=== PATIENT | male | born 1990 | race Caucasian/White ===

== ENCOUNTER 2020-05-19 17:22 | Emergency (ER) | payer MEDICAID, SELFPAY ==
--- NOTE | ~2020-05-19 | XR_ITS ---
EXAMINATION: XR CHEST CLINICAL INFORMATION: Chest pain, right-sided pressure. COMPARISON: None TECHNIQUE: Frontal view of the chest was obtained. FINDINGS: The lungs are clear. The heart and mediastinal structures are unremarkable. XR/XR chest 1V IMPRESSION: No acute cardiopulmonary process.
[2020-05-19 17:36] VITALS: BP 144/88; PULSE 78; RESP 18; TEMP 36.7; O2SAT 98; BMI 22.8
--- NOTE | 2020-05-19 17:43 | ECG_ITS ---
Test Reason : EDUARDO M Blood Pressure : / mmHG Vent. Rate : 084 BPM Atrial Rate : 084 BPM P-R Int : 162 ms QRS Dur : 098 ms QT Int : 390 ms P-R-T Axes : 050 066 043 degrees QTc Int : 460 ms Normal sinus rhythm with sinus arrhythmia Normal ECG No previous ECGs available Referred By: Generic ED Physician Electronically Signed By:ERMA VALDIVIA MD
--- NOTE | 2020-05-19 18:31 | ED.CHESTPAIN ---
HPI - Chest Pain General Chief Complaint: Chest Pain Stated Complaint: chest pressure Time Seen by Provider: 05/19/20 18:19 Source: patient Mode of arrival: EMS Limitations: no limitations History of Present Illness HPI narrative: Patient comes emergency room complaining of chest pressure for a month. Patient states it increases with wrist and resolves when he is active or walking or with deep breath. Patient states he has been seen at [facility] several times, states 1 month ago he was scanned for possible PE, he was told that it was negative. Patient states that he is here because he is anxious that he has the same symptoms as his friend that had a PE. Patient states that the last time he used cocaine was 1 month ago and heroin 3 days ago, patient is on methadone. MD complaint: chest pain Related Data Allergies Allergy/AdvReac Type Severity Reaction Status Date / Time No Known Allergies Allergy Verified 05/19/20 17:36 Review of Systems Review of Systems: Constitutional : No Weight loss, No Fever, No Chills, No Night Sweats, No Fatigue, No Malaise ENT/Mouth : No Hearing loss, No Ear Pain, No Nasal Congestion, No Sinus Pain, No Hoarseness, No sore throat, No Rhinorrhea, No Swallowing Difficulty Eyes: No Eye Pain, No Swelling, No Redness, No Foreign Body, No Discharge, No Vision Changes Cardiovascular : Complaining of right-sided chest pain, worse with rest and deep breath, improves with exertion No SOB, No Dyspnea on Exertion, No Orthopnea, No Edema, No Palpitations Respiratory : No Cough, No Sputum, No Wheezing, No Smoke Exposure, No Dyspnea Gastrointestinal : No Nausea, No Vomiting, No Diarrhea, No Constipation, No abdominal Pain, No Hematochezia, No Melena Genitourinary : no irregular bleeding, No Dysuria, No Urinary Frequency, No Hematuria, No Urinary Incontinence, No Urgency, No Flank Pain, No Urinary Flow Changes, No Hesitancy Musculoskeletal : No joint pain, No Myalgias, No Joint Swelling Skin : No Skin Lesions, No rash Neuro : No Weakness, No Numbness, No Paresthesias, No Loss of Consciousness, No Dizziness, No Headache Psych : No Anxiety/Panic, No Depression, No SI/HI/AH/VH, No Social Issues, Heme/Lymph: No Bruising, No Bleeding,No Lymphadenopathy Endocrine : No Polyuria, No Polydipsia, No Temperature Intolerance PMFSH Past Medical History Medical History (Updated 05/19/20 @ 19:14 by Shanta Okeefe MD) Substance abuse Social History Social History Advance Directives: No Advance Directives Information Provided: No Physical Exam Vital Signs: Vital Signs: Last Vital Signs Temp 98.1 F 05/19/20 17:36 Pulse 78 05/19/20 17:36 Resp 18 05/19/20 17:36 BP 144/88 H 05/19/20 17:36 Pulse Ox 98 05/19/20 17:36 Body Mass Index 22.8 Appearance: Alert. Oriented X3. No acute distress. Eyes: Pupils equal, round and reactive to light. ENT: Pharynx normal. Neck: Normal inspection. Neck supple. No lymph nodes noted. No crepitus CVS: Normal heart rate and rhythm. Pulses normal. Normal S1 and S2 Respiratory: No respiratory distress. Breath sounds normal. No Wheezing. No rales Abdomen: Soft and nontender. No rigidity. No distention. good BS x4 Skin: Skin warm and dry. Normal skin color. Normal skin turgor. Extremities: No lower extremity edema. No lower extremity edema. No Lacerations. No Rash Neuro: Oriented X 3. No motor deficit. No sensory deficit. Moving all extermities. No slurred speech. Course Course Course Narrative: At this time, patient is asymptomatic, I discussed the labs and imaging. Patient's heart score 0, Wells criteria for PE score 0 Patient's symptoms likely secondary to pleurisy versus musculoskeletal pain. MDM - Chest Pain Lab Data Result diagrams: 05/19/20 18:47 05/19/20 18:47 Labs: Lab Results 05/19/20 05/19/20 05/19/20 Range/Units 18:47 18:47 18:47 WBC 9.3 (4.8-10.8) X10*3/uL RBC 5.08 (4.60-5.80) X10*6/uL Hgb 15.5 (14.0-18.0) g/dl Hct 44.1 (42-52) % MCV 86.8 (80-98) fL MCH 30.5 (27.0-33.0) pg MCHC 35.1 (31.0-36.0) g/dl RDW 13.4 (11.0-16.0) % Plt Count 216 (160-400) X10*3/uL MPV 8.3 L (9.4-12.4) fL Immature Gran % (Auto) 0.2 (0.0-0.4) % Neut % (Auto) 66.0 (45-73) % Lymph % (Auto) 22.0 (20-40) % Mcclain % (Auto) 7.8 (2-11) % Eos % (Auto) 3.6 (0-4) % Baso % (Auto) 0.4 (0-2) % Lymph # (Auto) 2.0 (1.2-4.9) X10*3/uL Mcclain # (Auto) 0.7 (0.1-1.2) X10*3/uL Eos # (Auto) 0.3 (0.0-0.4) X10*3/uL Baso # (Auto) 0.0 (0.0-0.2) X10*3/uL Abs Immat Gran (auto) 0.02 (0.00-0.03) X10*3/uL Absolute Neuts (auto) 6.1 (2.0-8.3) X10*3/uL Absolute Nucleated RBC 0.000 (0.0-0.012) X10*3/uL Nucleated RBC % (auto) 0.0 (0.0-0.2) /100WBC D-Dimer NG/ML Sodium 138 (135-145) mmol/L Potassium 4.3 (3.3-5.1) mmol/L Chloride 100 (96-108) mmol/L Carbon Dioxide 29 (22-29) mmol/L Anion Gap 13 (12-20) BUN 13 (9-16) mg/dL Creatinine 0.85 (0.5-1.4) mg/dL Estim Creat Clear Calc 120.0 Estimated GFR > 60 Random Glucose 87 (60-115) mg/dL Calcium 9.4 (8.4-10.2) mg/dL Troponin I High Sens < 3.5 (<3.5-35.0) ng/L 05/19/20 Range/Units 18:47 WBC (4.8-10.8) X10*3/uL RBC (4.60-5.80) X10*6/uL Hgb (14.0-18.0) g/dl Hct (42-52) % MCV (80-98) fL MCH (27.0-33.0) pg MCHC (31.0-36.0) g/dl RDW (11.0-16.0) % Plt Count (160-400) X10*3/uL MPV (9.4-12.4) fL Immature Gran % (Auto) (0.0-0.4) % Neut % (Auto) (45-73) % Lymph % (Auto) (20-40) % Mcclain % (Auto) (2-11) % Eos % (Auto) (0-4) % Baso % (Auto) (0-2) % Lymph # (Auto) (1.2-4.9) X10*3/uL Mcclain # (Auto) (0.1-1.2) X10*3/uL Eos # (Auto) (0.0-0.4) X10*3/uL Baso # (Auto) (0.0-0.2) X10*3/uL Abs Immat Gran (auto) (0.00-0.03) X10*3/uL Absolute Neuts (auto) (2.0-8.3) X10*3/uL Absolute Nucleated RBC (0.0-0.012) X10*3/uL Nucleated RBC % (auto) (0.0-0.2) /100WBC D-Dimer < 200 NG/ML Sodium (135-145) mmol/L Potassium (3.3-5.1) mmol/L Chloride (96-108) mmol/L Carbon Dioxide (22-29) mmol/L Anion Gap (12-20) BUN (9-16) mg/dL Creatinine (0.5-1.4) mg/dL Estim Creat Clear Calc Estimated GFR Random Glucose (60-115) mg/dL Calcium (8.4-10.2) mg/dL Troponin I High Sens (<3.5-35.0) ng/L Imaging Data Chest x-ray: Radiologist's impression: Appearance: Alert. Oriented X3. No acute distress. Eyes: Pupils equal, round and reactive to light. ENT: Pharynx normal. Neck: Normal inspection. Neck supple. No lymph nodes noted. No crepitus CVS: Normal heart rate and rhythm. Pulses normal. Normal S1 and S2 Respiratory: No respiratory distress. Breath sounds normal. No Wheezing. No rales Abdomen: Soft and nontender. No rigidity. No distention. good BS x4 Skin: Skin warm and dry. Normal skin color. Normal skin turgor. Extremities: No lower extremity edema. No lower extremity edema. No Lacerations. No Rash Neuro: Oriented X 3. No motor deficit. No sensory deficit. Moving all extermities. No slurred speech. ECG Data ECG #1: Attestation: I personally reviewed and interpreted this ECG as follows: (Sinus rhythm, heart rate 84, QTC 460, no ST segment depression or elevation, no T-wave inversion) Scores Heart Score History: -0- slightly suspicious Age: -0- < or = 45 Risk factory: -0- no risk factors known Troponin: -0- < or = normal limit Discharge Plan Discharge Clinical Impression: Pleurisy Patient Disposition: Home, Self-Care Instructions: Pleurisy (ED) Additional Instructions: Please follow-up with your primary care physician tomorrow. If you have any worsening or new symptoms, please return to the emergency room or call 911
[2020-05-19 18:53] LABS: MANUAL DIFF FLAG NO
[2020-05-19 18:55] LABS: Basophils Percent Auto 0.4 % (0-2); Eosinophils Absolute Auto 0.3 X10*3/uL (0.0-0.4); Eosinophils Percent Auto 3.6 % (0-4); Hematocrit 44.1 % (42-52); Hemoglobin 15.5 g/dl (14.0-18.0); Imm Gran Abs Auto 0.02 X10*3/uL (0.00-0.03); Imm Gran Pct Auto 0.2 % (0.0-0.4); Mean Corpuscular HGB Conc 35.1 g/dl (31.0-36.0); Mean Corpuscular Hemoglobin 30.5 pg (27.0-33.0); Mean Corpuscular Volume 86.8 fL (80-98); Mean Platelet Volume 8.3 fL (9.4-12.4); Monocytes Absolute Auto 0.7 X10*3/uL (0.1-1.2); Monocytes Percent Auto 7.8 % (2-11); Neutrophils Absolute Auto 6.1 X10*3/uL (2.0-8.3); Platelet Count 216 X10*3/uL (160-400); Red Blood Count 5.08 X10*6/uL (4.60-5.80); Red Cell Distribution Width 13.4 % (11.0-16.0); White Blood Count 9.3 X10*3/uL (4.8-10.8)
[2020-05-19 19:04] LABS: D Dimer < 200 NG/ML
[2020-05-19 19:23] LABS: Anion Gap 13 (12-20); Blood Urea Nitrogen 13 mg/dL (9-16); Calcium 9.4 mg/dL (8.4-10.2); Carbon Dioxide 29 mmol/L (22-29); Chloride 100 mmol/L (96-108); Estimated Glomerular Filt Rate > 60; Glucose Random 87 mg/dL (60-115); Potassium 4.3 mmol/L (3.3-5.1); Sodium 138 mmol/L (135-145)
[2020-05-19 19:30] LABS: Troponin-I High Sensitivity < 3.5 ng/L (<3.5-35.0)
[2020-05-19 19:54] VITALS: BP 132/88; PULSE 86; RESP 32; O2SAT 96
== END 2020-05-19 20:11 | disposition home or self-care (01) ==
PROVIDERS: Emergency Provider Emergency Medicine
DX: R09.1 Pleurisy (principal); F11.20 Opioid dependence, uncomplicated; F17.200 Nicotine dependence, unspecified, uncomplicated
CPT/HCPCS: 36415; 71045; 80048; 84484; 85025; 85379; 93005; 99283; 99284

== ENCOUNTER 2022-10-15 13:44 | Emergency (ER) | payer OTHER, SELFPAY ==
[2022-10-15 14:47] VITALS: BP 139/91; PULSE 89; RESP 16; TEMP 37.3; O2SAT 99; BMI 21.3
--- NOTE | 2022-10-15 14:48 | ED.GENADULT ---
HPI - General Adult General Chief complaint: Extremity Problem Stated complaint: R Leg Pain No Injury Time Seen by Provider: 10/15/22 18:09 Source: patient Mode of arrival: ambulatory Limitations: no limitations History of Present Illness HPI narrative: Patient is a 32 year old assigned male at with a history of substance abuse presenting to the emergency department today with right upper leg pain. Patient states that sometimes his right quad will spasm and cause pain. Patient denies any dizziness, lightheadedness, abdominal pain, nausea, vomiting, fever, chills, blurry vision, double vision, loss of vision, chest pain, difficulty breathing, shortness of breath, back pain, night sweats, pain with urination, increased urinary frequency, increased urinary urgency, blood in his urine or stool, syncope or a near syncopal episode, bowel incontinence, bladder incontinence, bowel retention, bladder retention, or any other complaints at this time. Onset (ago): day(s) Location: right and lower extremity Radiation: non-radiation Severity: mild Severity scale (1-10): 4 Quality: aching Pain Consistency: intermittent Relieving factors: none Exacerbating factors: none Associated symptoms: denies other symptoms Treatments prior to arrival: none Related Data Previous Rx's Medication Instructions Recorded cyclobenzaprine 5 mg tablet 5 mg PO TID PRN muscle spasm 7 10/15/22 days #21 tabs Allergies Allergy/AdvReac Type Severity Reaction Status Date / Time No Known Allergies Allergy Verified 05/19/20 17:36 Review of Systems Constitutional: Constitutional: Reports no additional constitutional complaints, Denies chills, Denies fever(s) and Denies night sweats Eyes: Eyes: Reports no additional eye complaints, Denies blurry vision, Denies change in vision, Denies diplopia, Denies eye discharge, Denies loss of vision and Denies eye pain ENT: Denies dizziness Cardiovascular: Cardiovascular: Reports no additional cardiovascular complaints, Denies chest pain, Denies lightheadedness, Denies Loss of Consciousness and Denies dyspnea Respiratory: Respiratory: Reports no additional respiratory complaints and Denies dyspnea Gastrointestinal: Gastrointestinal: Reports no additional gastrointestinal complaints, Denies abdominal pain, Denies melena, Denies hematochezia, Denies change in bowel habits and Denies change in stool character Genitourinary: Genitourinary: Reports no additional male genitourinary complaints, Denies hematuria, Denies oliguria, Denies difficulty urinating, Denies dysuria, Denies urinary frequency, Denies urinary hesitancy, Denies urinary incontinence and Denies urinary urgency Musculoskeletal: Musculoskeletal: Reports no additional musculoskeletal complaints, Denies numbness and Denies tingling Comments: right upper leg pain Neurologic: Denies dizziness, Denies loss of vision, Denies numbness and Denies tingling Psychiatric: Psychiatric: Reports no additional psychiatric complaints Endocrine: Endocrine: Reports no additional endocrine complaints Hematologic/Lymphatic: Hematologic/Lymphatic: Reports no additional hematologic/lymphatic complaints Allergic/Immunologic: Allergic/Immunologic: Reports no additional allergic/immunologic complaints [facility] Past Medical History Attestation statement: The following information was validated with the patient. Source: old records reviewed and nursing notes reviewed Medical History Substance abuse Social History Social History Substance Use Type: Crack/Cocaine and Heroin Advance Directives: No Advance Directives Information Provided: No Physical Exam ED Vital Signs: Vital Signs - 24 hr 10/15/22 14:47 10/15/22 18:01 Temperature 99.1 F 98.2 F Pulse Rate 89 81 Respiratory Rate 16 16 Blood Pressure 139/91 H 133/83 Pulse Oximetry 99 95 Oxygen Delivery Method Room Air Room Air BMI result Body Mass Index 21.3 Const General: cooperative, no acute distress, alert and awake Nutritional Appearance: well nourished Orientation/consciousness: patient oriented x3 Limitations: no limitations [facility] Head: Yes normal to inspection and Yes atraumatic Ears: hearing grossly normal bilaterally and external ears normal General nose exam: Normal external nose present, no nasal discharge noted and no epistaxis Face and sinus: Yes normal facial exam, No abrasion and No laceration Mouth: Normal oral and palatal mucosa present, no drooling and no muffled voice Eyes General: appearance normal, both eyes and all related structures Periorbital: periorbital findings normal Eyelids: Yes eyelids normal Conjunctivae: conjunctivae normal Pupils: Equal, round and reactive pupils present EOM: EOMs intact bilaterally Neck Neck: Yes normal visual inspection, Yes full ROM and Yes no lymphadenopathy Chest Chest palpation & inspection: normal inspection of the chest Resp Effort & Inspection: normal respiratory effort and able to speak in complete sentences GI Inspection: Yes normal to inspection Neuro General: patient oriented x3 and moves all extremities Cranial nerves: Yes Equal, round and reactive pupils present Cognition (Neuro): normal cognition Motor exam (neuro): 5/5 motor strength present throughout Sensory Exam: Normal double simultaneous stimulation for sensation Coordination: [id number] test normal Extrem General: Yes normal to inspection, Yes full ROM and Yes capillary refill normal Psych Appearance: grossly normal Mental Status: mental status grossly normal Affect: normal affect Attitude: cooperative Thought process: Normal thought process present Thought content: Normal thought content present Insight: Good insight present (Psych) Course Course Course Narrative: This is an RME: Additional HPI, ROS, PE not included below will be deferred to primary provider. Patient is a 32 year old healthy male presenting with a few months of pain in his thigh. He explains he thinks its a hernia. He denies recent trauma. Plan: labs Procedures Orthopedic Splinting/Casting Injury #1: Side: right Lower Extremity Injury Location: upper leg Lower Extremity Immobilizer: Pola wrap Medical Decision Making Medical Decision Making MDM Narrative: Patient is a 32 year old assigned male at with a history of substance abuse presenting to the emergency department today with right upper leg pain. Patient's physical exam was unremarkable. Patient's right lower extremity had no warmth, no swelling, and no abnormalities to palpation or inspection. Patient's clinical presentation is the most consistent with a quad strain / sprain / spasm. I explained my physical exam findings to the patient. I answered all questions asked by the patient. POLA wrap was placed around the patient's right quad, without incident. Patient's PMS was in tact prior to and after POLA placement. I stressed the importance of the patient taking his medication as prescribed. I stressed the importance of the patient following up with his primary care provider and an orthopedic provider. I stressed the importance of the patient returning to the emergency department immediately if his symptoms were to worsen or if he were to develop any dizziness, shortness of breath, difficulty breathing, chest pain, blurry vision, loss of vision, nausea, vomiting, abdominal pain, fever, chills, back pain, or any other complaints. Patient verbalized agreement and understanding with this treatment plan and discharge. Differential Diagnosis Differential Diagnoses: The differential diagnosis associated with the presentation includes R quad strain R quad sprain R quad spasm Discharge Plan Discharge Clinical Impression: Quadriceps strain Patient Disposition: Home, Self-Care Instructions: Muscle Strain (DC) Additional Instructions: Follow up with your primary care provider and an orthopedic provider. Return to the emergency department immediately if your symptoms worsen or if you develop any dizziness, shortness of breath, difficulty breathing, chest pain, blurry vision, loss of vision, nausea, vomiting, abdominal pain, fever, chills, back pain, or any other complaints. Prescriptions: New cyclobenzaprine 5 mg tablet 5 mg PO TID PRN (Reason: muscle spasm) 7 Days Qty: 21 0RF Referrals: [facility] Family Medicine [Provider Group] (Call to establish and follow up with a primary care provider. If you already have a primary care provider, please follow up with them.) [facility] Primary Care, [place] [Provider Group] (Call to establish and follow up with a primary care provider. If you already have a primary care provider, please follow up with them.) [facility] Primary Care,[facility] [Provider Group] (Call to establish and follow up with a primary care provider. If you already have a primary care provider, please follow up with them.) [facility] [place] [facility] [Provider Group] (Call to establish and follow up with an orthopedic provider. ) Interventions: ED Discharge Assessment Last Done: 10/15/22 19:03 Discharge Date/Time: 10/15/22 19:04 Print Language: Kyrgyz
[2022-10-15 18:01] VITALS: BP 133/83; PULSE 81; RESP 16; TEMP 36.8; O2SAT 95
== END 2022-10-15 19:04 | disposition home or self-care (01) ==
PROVIDERS: Emergency Provider Emergency Medicine
DX: S76.111A Strain of right quadriceps muscle, fascia and tendon, initial encounter (principal); X58.XXXA Exposure to other specified factors, initial encounter; M79.604 Pain in right leg; Y93.9 Activity, unspecified; Y92.9 Unspecified place or not applicable; Y99.9 Unspecified external cause status
CPT/HCPCS: 99283

== ENCOUNTER 2022-10-17 14:00 | Emergency (ER) | payer OTHER, SELFPAY ==
--- NOTE | 2022-10-17 | ECG_ITS ---
Test Reason : DYSPNEA Blood Pressure : / mmHG Vent. Rate : 053 BPM Atrial Rate : 053 BPM P-R Int : 168 ms QRS Dur : 102 ms QT Int : 420 ms P-R-T Axes : 016 068 048 degrees QTc Int : 394 ms Sinus bradycardia with sinus arrhythmia Otherwise normal ECG When compared with ECG of 19-MAY-2020 17:49, Vent. rate has decreased BY 31 BPM QT has shortened Referred By: Generic ED Physician Electronically Signed By:ERMA VALDIVIA MD
--- NOTE | ~2022-10-17 | XR_ITS ---
EXAMINATION: XR CHEST CLINICAL INFORMATION: Chest pain COMPARISON: None available. TECHNIQUE: 2 views of the chest were obtained. FINDINGS: No significant abnormality is noted involving the heart, lungs, mediastinum, bony thorax or soft tissues. XR/XR chest 2V IMPRESSION: Unremarkable chest examination.
[2022-10-17 14:05] VITALS: BP 154/105; PULSE 116; RESP 22; TEMP 36.9; O2SAT 95; BMI 21.1
[2022-10-17 14:55] VITALS: BP 128/88; PULSE 77; RESP 18; O2SAT 96
--- NOTE | 2022-10-17 14:58 | PC.NURSE ---
pt axox4, respirations even and unlabored, sats 96% RA, nsr on monitor 86 bpm, skin wpd. pt c/o R. leg pain, chest tightness, sob x 1 day. pt denies injury to leg. pt reports throbbing sensation on R. side of chest. denies n/v/d/abd pain/dizziness. pt reports heroin use; last 2 days ago (nasal inhalation); most common injection site BUE per pt. no redness/swelling noted on R. leg. neuros intact. all needs met at this time; awaiting primary eval by ed provider; call patel within reach.
[2022-10-17 15:37] LABS: MANUAL DIFF FLAG NO
[2022-10-17 15:42] LABS: Basophils Percent Auto 0.3 % (0-2); Hematocrit 41.4 % (42.0-52.0); Hemoglobin 14.3 g/dl (14.0-18.0); Imm Gran Abs Auto 0.04 X10*3/uL (0.00-0.03); Imm Gran Pct Auto 0.3 % (0.0-0.4); Lymphocytes Absolute Auto 1.4 X10*3/uL (1.2-4.9); Lymphocytes Percent Auto 11.3 % (20-40); Mean Corpuscular HGB Conc 34.5 g/dl (31.0-36.0); Mean Corpuscular Hemoglobin 29.5 pg (27.0-33.0); Mean Corpuscular Volume 85.5 fL (80.0-98.0); Mean Platelet Volume 8.1 fL (9.4-12.4); Monocytes Absolute Auto 0.9 X10*3/uL (0.1-1.2); Monocytes Percent Auto 7.1 % (2-11); Neutrophils Absolute Auto 9.7 x10*3/uL (2.0-8.3); Platelet Count 230 X10*3/uL (160-400); Red Blood Count 4.84 X10*6/uL (4.60-5.80); Red Cell Distribution Width 11.9 % (11.0-16.0)
[2022-10-17 15:51] VITALS: PULSE 58
[2022-10-17 15:51] LABS: Prothrombin Time 12.2 SEC (11.1-13.3)
[2022-10-17 15:54] LABS: Partial Thromboplastin Time 31.5 SEC (26.0-36.4)
[2022-10-17 15:56] LABS: Alanine Aminotransferase 10 U/L (0-40); Albumin Level 4.2 g/dL (3.5-5.0); Alkaline Phosphatase 96 U/L (39-117); Anion Gap 11 (12-20); Aspartate Amino Transferase 8 U/L (5-37); Bilirubin Total 0.4 mg/dL (0.0-1.0); Blood Urea Nitrogen 13 mg/dL (9-16); Calcium 9.4 mg/dL (8.4-10.2); Carbon Dioxide 28 mmol/L (22-29); Chloride 108 mmol/L (96-108); Creatinine Clr Calc Pharmacy 114.5; Estimated Glomerular Filt Rate > 60; Glucose Random 88 mg/dL (60-115); Potassium 4.3 mmol/L (3.3-5.1); Sodium 143 mmol/L (135-145)
[2022-10-17 16:00] VITALS: BP 136/82; PULSE 60; RESP 19; TEMP 36.8; O2SAT 99
[2022-10-17 16:01] LABS: B Type Natriuretic Peptide < 10 pg/mL (<100)
[2022-10-17 16:04] LABS: D Dimer High Sensitivity < 150 NG/ML
[2022-10-17 16:08] LABS: Troponin-I High Sensitivity < 2.7 ng/L (<3.5-35.0)
--- NOTE | 2022-10-17 16:17 | ED.SOB ---
HPI - SOB/Dyspnea General Chief Complaint: Dyspnea Stated Complaint: Diff breathing Time Seen by Provider: 10/17/22 16:14 Source: patient Mode of arrival: ambulatory Limitations: no limitations History of Present Illness HPI Narrative: Patient with history of substance abuse multiple complaints nonspecific was seen here 2 days ago for right thigh pain advised Flexeril for muscle spasm, complaining of feeling air bubble in the right thigh and air bubble feeling in the right groin area also complaining of nonspecific chest pain body aches , anxious on arrival Related Data Previous Rx's Medication Instructions Recorded cyclobenzaprine 5 mg tablet 5 mg PO TID PRN muscle spasm 7 10/15/22 days #21 tabs ibuprofen 600 mg tablet 600 mg PO Q6H PRN fever or pain 10/17/22 #30 tabs Allergies Allergy/AdvReac Type Severity Reaction Status Date / Time No Known Allergies Allergy Verified 10/17/22 14:05 Review of Systems Review of Systems: Yes all other systems are reviewed and are negative PMFSH Past Medical History Medical History Substance abuse Social History Social History Alcohol intake: never Smoked in Last 30 Days: Yes Use of substances other than those prescribed or required for medical reasons: Yes Substance Use Type: Heroin Last Used Substance: Days (ago) Advance Directives: No Advance Directives Information Provided: No Physical Exam Vital Signs: Vital Signs: Last Vital Signs Temp 98.2 F 10/17/22 16:00 Pulse 60 10/17/22 16:00 Resp 19 10/17/22 16:00 BP 136/82 10/17/22 16:00 Pulse Ox 99 10/17/22 16:00 O2 Del Method Room Air 10/17/22 16:00 BMI result Body Mass Index 21.1 Appearance: Alert. Oriented X3. No acute distress. Anxious ENT: Pharynx normal. Oral Mucosa moist Neck: Normal inspection. Neck supple. CVS: Normal heart rate and rhythm. Pulses normal. Respiratory: No respiratory distress. Equal air entry bilateral, no wheezing/rales/rhonchi Abdomen: Soft and nontender. Bowel sounds are present, no mass palpable, no CVA tenderness Skin: Skin warm and dry. Normal skin color. Normal skin turgor. Extremities: No lower extremity edema. No calf tenderness no signs of muscle rupture or strain Neuro: Oriented X 3. No motor deficit. No sensory deficit.No cerebellar signs , cranial nerves II-XII intact Medical Decision Making Lab Data 10/17/22 15:31 10/17/22 15:31 Labs: Lab Results 10/17/22 10/17/22 10/17/22 Range/Units 15:31 15:31 15:31 WBC 12.0 H (4.8-10.8) X10*3/uL RBC 4.84 (4.60-5.80) X10*6/uL Hgb 14.3 (14.0-18.0) g/dl Hct 41.4 L (42.0-52.0) % MCV 85.5 (80.0-98.0) fL MCH 29.5 (27.0-33.0) pg MCHC 34.5 (31.0-36.0) g/dl RDW 11.9 (11.0-16.0) % Plt Count 230 (160-400) X10*3/uL MPV 8.1 L (9.4-12.4) fL Immature Gran % (Auto) 0.3 (0.0-0.4) % Neut % (Auto) 81.0 H (45-73) % Lymph % (Auto) 11.3 L (20-40) % Colbert % (Auto) 7.1 (2-11) % Eos % (Auto) 0.0 (0-4) % Baso % (Auto) 0.3 (0-2) % Lymph # (Auto) 1.4 (1.2-4.9) X10*3/uL Colbert # (Auto) 0.9 (0.1-1.2) X10*3/uL Eos # (Auto) 0.0 (0.0-0.4) X10*3/uL Baso # (Auto) 0.0 (0.0-0.2) X10*3/uL Abs Immat Gran (auto) 0.04 H (0.00-0.03) X10*3/uL Absolute Neuts (auto) 9.7 H (2.0-8.3) x10*3/uL Absolute Nucleated RBC 0.000 (0.0-0.012) X10*3/uL Nucleated RBC % (auto) 0.0 (0.0-0.2) /100WBC PT (11.1-13.3) SEC INR (0.9-1.1) APTT (26.0-36.4) SEC D-Dimer High Sensitivty NG/ML Sodium 143 (135-145) mmol/L Potassium 4.3 (3.3-5.1) mmol/L Chloride 108 (96-108) mmol/L Carbon Dioxide 28 (22-29) mmol/L Anion Gap 11 L (12-20) BUN 13 (9-16) mg/dL Creatinine 0.81 (0.5-1.4) mg/dL Estim Creat Clear Calc 114.5 Estimated GFR > 60 Random Glucose 88 (60-115) mg/dL Calcium 9.4 (8.4-10.2) mg/dL Total Bilirubin 0.4 (0.0-1.0) mg/dL AST 8 (5-37) U/L ALT 10 (0-40) U/L Alkaline Phosphatase 96 (39-117) U/L Troponin I High Sens < 2.7 (<3.5-35.0) ng/L B-Natriuretic Peptide (<100) pg/mL Total Protein 7.0 (6.5-8.0) g/dL Albumin 4.2 (3.5-5.0) g/dL 10/17/22 10/17/22 Range/Units 15:31 15:31 WBC (4.8-10.8) X10*3/uL RBC (4.60-5.80) X10*6/uL Hgb (14.0-18.0) g/dl Hct (42.0-52.0) % MCV (80.0-98.0) fL MCH (27.0-33.0) pg MCHC (31.0-36.0) g/dl RDW (11.0-16.0) % Plt Count (160-400) X10*3/uL MPV (9.4-12.4) fL Immature Gran % (Auto) (0.0-0.4) % Neut % (Auto) (45-73) % Lymph % (Auto) (20-40) % Colbert % (Auto) (2-11) % Eos % (Auto) (0-4) % Baso % (Auto) (0-2) % Lymph # (Auto) (1.2-4.9) X10*3/uL Colbert # (Auto) (0.1-1.2) X10*3/uL Eos # (Auto) (0.0-0.4) X10*3/uL Baso # (Auto) (0.0-0.2) X10*3/uL Abs Immat Gran (auto) (0.00-0.03) X10*3/uL Absolute Neuts (auto) (2.0-8.3) x10*3/uL Absolute Nucleated RBC (0.0-0.012) X10*3/uL Nucleated RBC % (auto) (0.0-0.2) /100WBC PT 12.2 (11.1-13.3) SEC INR 1.0 (0.9-1.1) APTT 31.5 (26.0-36.4) SEC D-Dimer High Sensitivty < 150 NG/ML Sodium (135-145) mmol/L Potassium (3.3-5.1) mmol/L Chloride (96-108) mmol/L Carbon Dioxide (22-29) mmol/L Anion Gap (12-20) BUN (9-16) mg/dL Creatinine (0.5-1.4) mg/dL Estim Creat Clear Calc Estimated GFR Random Glucose (60-115) mg/dL Calcium (8.4-10.2) mg/dL Total Bilirubin (0.0-1.0) mg/dL AST (5-37) U/L ALT (0-40) U/L Alkaline Phosphatase (39-117) U/L Troponin I High Sens (<3.5-35.0) ng/L B-Natriuretic Peptide < 10 (<100) pg/mL Total Protein (6.5-8.0) g/dL Albumin (3.5-5.0) g/dL Discharge Plan Discharge Clinical Impression: Inguinal lymphadenopathy, Musculoskeletal limb pain Patient Disposition: Home, Self-Care Instructions: Lymphadenopathy (ED), Leg Pain (ED) Additional Instructions: Continue Flexeril for muscle relaxation as prescribed Motrin for pain Prescriptions: New ibuprofen 600 mg tablet 600 mg PO Q6H PRN (Reason: fever or pain) Qty: 30 0RF No Action cyclobenzaprine 5 mg tablet 5 mg PO TID PRN (Reason: muscle spasm) 7 Days Qty: 21 0RF Interventions: ED Discharge Assessment Last Done: 10/17/22 18:23 Discharge Date/Time: 10/17/22 16:30
== END 2022-10-17 16:30 | disposition home or self-care (01) ==
PROVIDERS: Physician Assistant; Emergency Provider Internal Medicine
DX: R06.02 Shortness of breath (principal); M62.838 Other muscle spasm; R59.0 Localized enlarged lymph nodes; M79.605 Pain in left leg; M79.604 Pain in right leg; F41.9 Anxiety disorder, unspecified; Z79.899 Other long term (current) drug therapy
CPT/HCPCS: 36415; 71046; 80053; 83880; 84484; 85025; 85379; 85610; 85730; 93005; 99284; 99285

== ENCOUNTER → 2022-10-17 15:40 | Outpatient (BNV) | payer OTHER, SELFPAY | PROVIDERS: Emergency Provider Internal Medicine; Visit Provider Internal Medicine Cardiovascular Disease | DX: R00.1 Bradycardia, unspecified (principal) | CPT/HCPCS: 93010 ==

== ENCOUNTER 2022-11-09 09:29 | Emergency (ER) | payer OTHER, SELFPAY ==
--- NOTE | ~2022-11-09 | XR_ITS ---
EXAMINATION: XR CHEST CLINICAL INFORMATION: Pain COMPARISON: Chest x-ray October 18, 2022 TECHNIQUE: Frontal view of the chest was obtained. FINDINGS: Cardiac silhouette is normal in size. The lungs are well aerated. There is no lobar consolidation. No pleural effusion or pneumothorax. No acute osseous abnormality. XR/XR chest 1V IMPRESSION: No acute pulmonary pathology.
--- NOTE | 2022-11-09 09:37 | ED.ABDPAIN ---
HPI - Abdominal Pain General Chief Complaint: Abdominal Pain Stated Complaint: Abd pain Time Seen by Provider: 11/09/22 09:32 Source: patient and old records reviewed Mode of arrival: EMS Limitations: no limitations History of Present Illness HPI narrative: 32 yo male with hx of opiate use disorder who injects heroin and is on 57mg methadone just missed his dose this AM comes in with c/o diffuse abdominal pain for the last week that radiates to chest since last night. He notes he has chills, tremors, n/v and feels these bubbles in his body that dissappear and he thinks they are fluid or air and they travel from his abdomen into his legs. He tells me he had an abscess drained on his abdomen at [facility] ER on 11/06 and cannot tell me much more and he won't take the antibiotics as they make him feel worse. He is very anxious and states hit is not withdrawal and he denies ETOH abuse. He states he had a fever last night of 101 MD elicited complaint: abdominal pain Pertinent past history: other (drug abuse) Onset (ago): week(s) (1) Pain Consistency: intermittent Location: diffuse Severity: moderate Quality: aching Radiation: chest Migration to: other (chest) Exacerbating factors: eating and movement Relieving factors: nothing Context: recent antibiotic use and history of similar episodes Associated symptoms: nausea, vomiting, fever and chills Related Data Home Medications Medication Instructions Recorded Confirmed methadone 10 mg/mL oral 57 mg PO DAILY 11/09/22 11/09/22 concentrate (Methadone Intensol) Previous Rx's Medication Instructions Recorded cyclobenzaprine 5 mg tablet 5 mg PO TID PRN muscle spasm 7 10/15/22 days #21 tabs ibuprofen 600 mg tablet 600 mg PO Q6H PRN fever or pain 10/17/22 #30 tabs ondansetron 4 mg disintegrating 4 mg PO Q8H PRN nausea and 11/09/22 tablet vomiting #20 tabs Allergies Allergy/AdvReac Type Severity Reaction Status Date / Time No Known Allergies Allergy Verified 11/09/22 09:46 Review of Systems Review of Systems Constitutional : No Weight loss, pos Fever, pos Chills ENT/Mouth : No sore throat, No Rhinorrhea Eyes: No Swelling, No Redness Cardiovascular : No Chest Pain, No SOB, NoEdema Respiratory : No Cough, No Sputum, No Wheezing Gastrointestinal : Positive Nausea, Positive Vomiting, no Diarrhea, positive abdominal Pain, No Hematochezia, No Melena Genitourinary : No Dysuria, No Urinary Frequency, No Hematuria, No Urgency Musculoskeletal : No joint pain, No Myalgias, No Joint Swelling Skin : No Skin Lesions, No rash Neuro : No Weakness, No Numbness, No Dizziness, No Headache Psych : pos Anxiety/Panic, No Depression Heme/Lymph: No Bruising, No Lymphadenopathy Endocrine : No Polyuria, No Polydipsia All other systems reviewed and are negative. [facility] Past Medical History Attestation statement: The following information was validated with the patient. Medical History Substance abuse Social History Social History Alcohol intake: never Patient Tobacco Use Status: Tobacco use Unknown Smoked in Last 30 Days: Yes Use of substances other than those prescribed or required for medical reasons: Yes Substance Use Type: Heroin Substance Use Frequency: Weekly Last Used Substance: Days (ago) Advance Directives: No Advance Directives Information Provided: No Physical Exam ED Vital Signs: Vital Signs - 24 hr 11/09/22 09:38 11/09/22 12:03 Temperature 98.1 F 97.9 F Pulse Rate 94 70 Respiratory Rate 16 16 Blood Pressure 148/86 H 129/67 Pulse Oximetry 95 96 Oxygen Delivery Method Room Air Room Air BMI result Body Mass Index 20.9 Appearance: Alert. Oriented X3. No acute distress. anxious agitated, tremulous Eyes: Pupils equal, round and reactive to light dilated 4 to 5mm ENT: Pharynx normal. Neck: Normal inspection. Neck supple. CVS: Normal heart rate and rhythm. Pulses normal. no murmur Respiratory: No respiratory distress. Breath sounds normal. Abdomen: Soft and nontender has healing area under belly button no fluctuance mild erythema but no extension and no edema Skin: Skin warm and dry. Normal skin color. Normal skin turgor. Extremities: No lower extremity edema. No calf ttp Neuro: Oriented X 3. No motor deficit. No sensory deficit. Course Course Course Narrative: WBC improved, negative lactic acid, mild bump in CRP, afebrile here no peripheral signs of endocarditis and the patient notes the pain radiates from the abscess on his abdomen down to his legs and up to his chest this is clinically not consistent with endocarditis - he has no pleuritic chest pain no dyspnea. I did send off cultures. Medical Decision Making Medical Decision Making [facility] Narrative: 32 yo male here with c/o fevers, n/v chills and abdominal pain states that he was recently treated for abscess at [facility] on 11/06 but isn't really taking the antibiotics. He stil injects heroin. He states he had a fever last night. He is very tremulous and agitated with dilated pupils he does appear in withrawal but denies this is possible. Will dose him with his AM methadone. He denies ETOH abuse. At this time he could have withdrawal, endocarditis, pneumonia or other pathology but undifferentiated - suspect possible withdrawal most likely his abdomen is healing well. I have ordered labs and inflammatory markers. Differential Diagnosis Differential Diagnoses: The differential diagnosis associated with the presentation includes withdrawal, substance abuse, healing abscess Admission/Observation Consideration of admission/observation: Escalation of care including admission/observation considered labs and VS reassuring can continue the bactrim as prescribed Lab Data [facility] Lab Attestation statement: I reviewed the patient's lab results. 11/09/22 10:23 11/09/22 10:23 Labs: Lab Results 11/09/22 11/09/22 11/09/22 Range/Units 10:23 10:23 10:23 WBC 9.1 (4.8-10.8) X10*3/uL RBC 4.89 (4.60-5.80) X10*6/uL Hgb 14.4 (14.0-18.0) g/dl Hct 40.4 L (42.0-52.0) % MCV 82.6 (80.0-98.0) fL MCH 29.4 (27.0-33.0) pg MCHC 35.6 (31.0-36.0) g/dl RDW 11.9 (11.0-16.0) % Plt Count 316 D (160-400) X10*3/uL MPV 8.4 L (9.4-12.4) fL Immature Gran % (Auto) 0.3 (0.0-0.4) % Neut % (Auto) 85.5 H (45-73) % Lymph % (Auto) 9.6 L (20-40) % [place] % (Auto) 4.5 (2-11) % Eos % (Auto) 0.0 (0-4) % Baso % (Auto) 0.1 (0-2) % Lymph # (Auto) 0.9 L (1.2-4.9) X10*3/uL [place] # (Auto) 0.4 (0.1-1.2) X10*3/uL Eos # (Auto) 0.0 (0.0-0.4) X10*3/uL Baso # (Auto) 0.0 (0.0-0.2) X10*3/uL Abs Immat Gran (auto) 0.03 (0.00-0.03) X10*3/uL Absolute Neuts (auto) 7.8 (2.0-8.3) x10*3/uL Absolute Nucleated RBC 0.000 (0.0-0.012) X10*3/uL Nucleated RBC % (auto) 0.0 (0.0-0.2) /100WBC Sodium 141 (135-145) mmol/L Potassium 4.1 (3.3-5.1) mmol/L Chloride 106 (96-108) mmol/L Carbon Dioxide 26 (22-29) mmol/L Anion Gap 13 (12-20) BUN 13 (9-16) mg/dL Creatinine 1.01 (0.5-1.4) mg/dL Estim Creat Clear Calc 90.8 Estimated GFR > 60 Random Glucose 125 H (60-115) mg/dL Lactic Acid (0.5-2.0) mmol/L Calcium 9.9 (8.4-10.2) mg/dL Magnesium 1.9 (1.6-2.6) mg/dL Total Bilirubin 0.4 (0.0-1.0) mg/dL Direct Bilirubin 0.2 (0.0-0.5) mg/dL AST 9 (5-37) U/L ALT 10 (0-40) U/L Alkaline Phosphatase 93 (39-117) U/L Troponin I High Sens < 2.7 (<3.5-35.0) ng/L C-Reactive Protein 1.45 H (< or = 0.50) mg/dL Total Protein 7.6 (6.5-8.0) g/dL Albumin 4.5 (3.5-5.0) g/dL Lipase 11 (8-78) U/L Ethyl Alcohol mg/dL COVID-19 (SKYE) (Negative) COVID-19 Clin Com 11/09/22 11/09/22 11/09/22 Range/Units 10:23 10:23 10:23 WBC (4.8-10.8) X10*3/uL RBC (4.60-5.80) X10*6/uL Hgb (14.0-18.0) g/dl Hct (42.0-52.0) % MCV (80.0-98.0) fL MCH (27.0-33.0) pg MCHC (31.0-36.0) g/dl RDW (11.0-16.0) % Plt Count (160-400) X10*3/uL MPV (9.4-12.4) fL Immature Gran % (Auto) (0.0-0.4) % Neut % (Auto) (45-73) % Lymph % (Auto) (20-40) % [place] % (Auto) (2-11) % Eos % (Auto) (0-4) % Baso % (Auto) (0-2) % Lymph # (Auto) (1.2-4.9) X10*3/uL [place] # (Auto) (0.1-1.2) X10*3/uL Eos # (Auto) (0.0-0.4) X10*3/uL Baso # (Auto) (0.0-0.2) X10*3/uL Abs Immat Gran (auto) (0.00-0.03) X10*3/uL Absolute Neuts (auto) (2.0-8.3) x10*3/uL Absolute Nucleated RBC (0.0-0.012) X10*3/uL Nucleated RBC % (auto) (0.0-0.2) /100WBC Sodium (135-145) mmol/L Potassium (3.3-5.1) mmol/L Chloride (96-108) mmol/L Carbon Dioxide (22-29) mmol/L Anion Gap (12-20) BUN (9-16) mg/dL Creatinine (0.5-1.4) mg/dL Estim Creat Clear Calc Estimated GFR Random Glucose (60-115) mg/dL Lactic Acid 0.9 (0.5-2.0) mmol/L Calcium (8.4-10.2) mg/dL Magnesium (1.6-2.6) mg/dL Total Bilirubin (0.0-1.0) mg/dL Direct Bilirubin (0.0-0.5) mg/dL AST (5-37) U/L ALT (0-40) U/L Alkaline Phosphatase (39-117) U/L Troponin I High Sens (<3.5-35.0) ng/L C-Reactive Protein (< or = 0.50) mg/dL Total Protein (6.5-8.0) g/dL Albumin (3.5-5.0) g/dL Lipase (8-78) U/L Ethyl Alcohol < 10 mg/dL COVID-19 (SKYE) Negative (Negative) COVID-19 Clin Com See Note Independent Interpretation I performed an independent interpretation of an: EKG and Plain X-Ray (normal ) Interpretation: Rate: 83 Rhythm: NSR [place]: normal Normal P waves. Normal JOLEEN. Normal QRS complex. ST T wave : normal no TERRELL qTC: normal prior studies: no acute ischemia The study has been interpreted contemporaneously by me. . Radiology Impression Discussion of test interpretation with radiology: I have reviewed the radiologist's reading. External Record Review External record reviewed: Inpatient record, Outpatient record and Prior outpatient labs per [facility] records started on bactrim WBC count was [address] scan 6cm subq abscess no intraabdominal extension of note [facility] notes he has had multiple CT scans at their facility for abdominal pain and multiple complaints Prescription Management I considered prescription management with: Other (zofran) Social Determinants Patient?s care significantly limited by Social Determinants of Health including: Problems related to primary support group Medications Administered Discontinued Medications Generic Name Dose Route Start Last Admin Trade Name Freq PRN Reason Stop Dose Admin Methadone HCl 57 mg 11/09/22 10:30 11/09/22 10:39 Methadone Hcl 20 Mg/2 Ml Oral.Conc PO 11/09/22 10:31 57 mg ONCE ONE Administration Discharge Plan Discharge Clinical Impression: Atypical chest pain Abdominal pain Qualifiers: Abdominal location: generalized Qualified Code(s): R10.84 - Generalized abdominal pain Patient Disposition: Home, Self-Care Instructions: Chest Pain (ED), Abdominal Pain (ED) Additional Instructions: your lab work was reassuring. your CT scan at [facility] showed a small abscess only in the skin. you need to continue the bactrim antibiotic they prescribed. your heart test was normal. your EKG and CXR were normal. we did send off a blood culture to check for bacteria in your blood if it returns positive we will call you at home return for worsening fevers, inability to eat or drink, or any other concerns Prescriptions: New ondansetron 4 mg tablet,disintegrating 4 mg PO Q8H PRN (Reason: nausea and vomiting) Qty: 20 0RF No Action ibuprofen 600 mg tablet 600 mg PO Q6H PRN (Reason: fever or pain) Qty: 30 0RF methadone [Methadone Intensol] 10 mg/mL Concentrate 57 mg PO DAILY cyclobenzaprine 5 mg tablet 5 mg PO TID PRN (Reason: muscle spasm) 7 Days Qty: 21 0RF
[2022-11-09 09:38] VITALS: BP 119/76; BP 148/86; PULSE 108; PULSE 94; RESP 16; TEMP 36.7; O2SAT 95; O2SAT 96; BMI 20.9
--- NOTE | 2022-11-09 09:57 | ECG_ITS ---
Test Reason : CP Blood Pressure : / mmHG Vent. Rate : 083 BPM Atrial Rate : 083 BPM P-R Int : 156 ms QRS Dur : 094 ms QT Int : 386 ms P-R-T Axes : 073 084 032 degrees QTc Int : 453 ms Normal sinus rhythm with sinus arrhythmia Nonspecific ST and T wave abnormality Abnormal ECG When compared with ECG of 17-OCT-2022 15:40, Vent. rate has increased BY [address] no longer elevated in Inferior leads QT has lengthened Nonspecific ST and T wave abnormality is now Present Referred By: Bertha Johnson Electronically Signed By:EDGAR VITALE
--- NOTE | 2022-11-09 10:10 | PC.NURSE ---
methadone dose verified by this - [facility] [place] [phone]. faxed to pharmacy; Dr. stark notified.
--- NOTE | 2022-11-09 10:26 | HE.PHANOTE ---
RE METHADONE PT GETS 57 MG FROM [facility]. LAST DOSE WAS 11/06 @0807, BUT GOT TWO TAKE HOME DOSES FOR 11/07 AND 11/08 GAGE
[2022-11-09 10:36] LABS: MANUAL DIFF FLAG NO
[2022-11-09 10:37] LABS: Basophils Percent Auto 0.1 % (0-2); Hematocrit 40.4 % (42.0-52.0); Hemoglobin 14.4 g/dl (14.0-18.0); Imm Gran Abs Auto 0.03 X10*3/uL (0.00-0.03); Imm Gran Pct Auto 0.3 % (0.0-0.4); Lymphocytes Absolute Auto 0.9 X10*3/uL (1.2-4.9); Lymphocytes Percent Auto 9.6 % (20-40); Mean Corpuscular HGB Conc 35.6 g/dl (31.0-36.0); Mean Corpuscular Hemoglobin 29.4 pg (27.0-33.0); Mean Corpuscular Volume 82.6 fL (80.0-98.0); Mean Platelet Volume 8.4 fL (9.4-12.4); Monocytes Absolute Auto 0.4 X10*3/uL (0.1-1.2); Monocytes Percent Auto 4.5 % (2-11); Neutrophils Absolute Auto 7.8 x10*3/uL (2.0-8.3); Neutrophils Percent Auto 85.5 % (45-73); Platelet Count 316 X10*3/uL (160-400); Red Blood Count 4.89 X10*6/uL (4.60-5.80); Red Cell Distribution Width 11.9 % (11.0-16.0); White Blood Count 9.1 X10*3/uL (4.8-10.8)
[2022-11-09] MEDS: methADONE HCl 20 MG/2 ML ORAL.CONC 57 MG PO (10:39)
[2022-11-09 10:47] LABS: COVID-19 Test Negative (Negative); IDNOW Serial# 9DB6401D
[2022-11-09 10:54] LABS: Lactic Acid 0.9 mmol/L (0.5-2.0)
[2022-11-09 10:58] LABS: Alanine Aminotransferase 10 U/L (0-40); Albumin Level 4.5 g/dL (3.5-5.0); Alkaline Phosphatase 93 U/L (39-117); Anion Gap 13 (12-20); Aspartate Amino Transferase 9 U/L (5-37); Bilirubin Direct 0.2 mg/dL (0.0-0.5); Bilirubin Total 0.4 mg/dL (0.0-1.0); Blood Urea Nitrogen 13 mg/dL (9-16); C Reactive Protein 1.45 mg/dL (< or = 0.50); Calcium 9.9 mg/dL (8.4-10.2); Carbon Dioxide 26 mmol/L (22-29); Chloride 106 mmol/L (96-108); Creatinine Clr Calc Pharmacy 90.8; Estimated Glomerular Filt Rate > 60; Glucose Random 125 mg/dL (60-115); Lipase 11 U/L (8-78); Magnesium 1.9 mg/dL (1.6-2.6); Potassium 4.1 mmol/L (3.3-5.1); Sodium 141 mmol/L (135-145); Total Protein 7.6 g/dL (6.5-8.0)
[2022-11-09 11:08] LABS: Ethanol < 10 mg/dL
[2022-11-09 11:26] LABS: Troponin-I High Sensitivity < 2.7 ng/L (<3.5-35.0)
[2022-11-09 12:03] VITALS: BP 129/67; PULSE 70; RESP 16; TEMP 36.6; O2SAT 96
[2022-11-09 12:22] LABS: Amphetamine Screen Urine Not Detected (Not Detect); Barbiturates, Urine Not Detected (Not Detect); Benzodiazepines Screen Urine Not Detected (Not Detect); Cannabinoid Screen Urine Not Detected (Not Detect); Cocaine Screen Urine POSITIVE (Not Detect); Fentanyl, urine POSITIVE (Not Detect); Opiate Screen Urine POSITIVE (Not Detect); Phencyclidine Screen Urine Not Detected (Not Detect)
== END 2022-11-09 12:28 | disposition home or self-care (01) ==
PROVIDERS: Emergency Provider Emergency Medicine
DX: R07.89 Other chest pain (principal); R10.84 Generalized abdominal pain; Z20.822 Contact with and (suspected) exposure to COVID-19; Z20.828 Contact with and (suspected) exposure to other viral communicable diseases; Z79.899 Other long term (current) drug therapy
CPT/HCPCS: 36415; 71045; 80048; 80076; 80307; 83605; 83690; 83735; 84484; 85025; 86140; 87040; 87077; 87635; 93005; 99284

== ENCOUNTER 2023-08-05 17:21 | Inpatient (IN) | payer MEDICAID, OTHER, SELFPAY ==
[2023-08-05 17:23] VITALS: BP 167/104; PULSE 90; RESP 20; TEMP 37.1; O2SAT 96; BMI 17.5
--- NOTE | 2023-08-05 17:24 | ED_ITS ---
HPI - General Adult General Chief complaint: General Medical Stated complaint: parasite? Time Seen by Provider: 08/05/23 21:28 Source: patient Mode of arrival: ambulatory Limitations: no limitations History of Present Illness ED Provider: Yana Gonzalez PA-C HPI narrative: 33-year-old male with a history of heroin and fentanyl use who presents to the ER for evaluation of acute on chronic issues. He reports white stringy things that resemble silk have been coming out of his hands and out of various parts his body for a long time. He reports that this is causing plastic bags disintegrate and destroys food when he holds it. He reports having parasites in his stools for over a year. He has 30 lb unintentional weight loss. He states the long white worms in his stools have been witnessed by his father who he lives with. He states his friends have witnessed the ?things? coming out of his skin and body. He admits to drug use but states these things started having to him after he started using drugs years ago. MD complaint: Question of stool parasites, visual hallucinations Onset (ago): month(s) Treatments prior to arrival: none Related Data Home Medications ?Medication ?Instructions ?Recorded ?Confirmed methadone 10 mg/mL oral 57 mg PO DAILY 11/09/22 11/09/22 concentrate (Methadone Intensol) Previous Rx's ?Medication ?Instructions ?Recorded cyclobenzaprine 5 mg tablet 5 mg PO TID PRN muscle spasm 7 10/15/22 days #21 tabs ibuprofen 600 mg tablet 600 mg PO Q6H PRN fever or pain 10/17/22 #30 tabs ondansetron 4 mg disintegrating 4 mg PO Q8H PRN nausea and 11/09/22 tablet vomiting #20 tabs Allergies Allergy/AdvReac Type Severity Reaction Status Date / Time No Known Allergies Allergy Verified 08/05/23 17:28 Review of Systems 2 Review of Systems: Yes all other systems are reviewed and are negative PMFSH Past Medical History Medical History Substance abuse Social History Social History Alcohol intake: never Patient Tobacco Use Status: Tobacco use Unknown Substance Use Type: Heroin Advance Directives: No Advance Directives Information Provided: No Do you have a plan to hurt others: No Plan Physical Exam ED Vital Signs: Vital Signs - 24 hr 08/05/23 17:23 08/05/23 21:43 Temperature 98.7 F 98 F Pulse Rate 90 60 Respiratory Rate 20 20 Blood Pressure 167/104 H 139/82 Pulse Oximetry 96 100 Oxygen Delivery Method Room Air Room Air BMI result Body Mass Index 17.5 Appearance: Alert. Oriented X3. Appears disheveled. Head: normocephalic, atraumatic. Eyes: Pupils equal, round and reactive to light. ENT: Pharynx normal. No tonsillar swelling or exudate. Neck: Normal inspection. Neck supple. CVS: Normal heart rate and rhythm. Pulses normal. Pectus carnivatum Respiratory: No respiratory distress. Breath sounds normal. Abdomen: Soft and nontender. +BS x4 Skin: Skin warm and dry. Normal skin color. Normal skin turgor. No rashes. No lesions Extremities: No lower extremity edema. No joint swelling. Bilateral feet are black with dirt on the soles of his feet. Neuro/psych: Oriented X 3. No motor deficit. No sensory deficit. CN II-XII intact. Normal speech and cognition. Hyperverbal and animated Course Course Course Narrative: This is a Rapid Medical Examination (RME) performed by Christen Means PA-C in triage. Full HPI, ROS, assessment and treatment plan per primary provider in the Main ED. 33 yo male hx of polysubstance abuse here for eval of parasites in stool. admits to yellow and white parasites in his stool x1 year. states they are launching from his body and eating his grocery bags. admits to approx 30 pound weight loss over the last year. he was seen at [facility] for same, recently discharge with unremarkable work up, advised to f/u with PCP. admits to injecting heroin. poor historian. denies SI/HI. no recent travel outside [place]. Plan: labs, UA, UDS Reevaluation(s) Reevaluation #1: Physician observation started at 21:47. Patient placed in physician observation because patient is awaiting CARE team evaluation for the possible need of inpatient psych admission vs detox. At the time observation was started patient's vital signs were stable. Patient is alert and oriented. Neuro exam is non-focal. CV: RRR and lungs are clear. Will continue to monitor. Time: 21:47 Reevaluation #2: Patient evaluated by the care team. Patient determined to require inpatient level of care for his delusions. He is on a section 12. Will continue to monitor. Will monitor for withdrawal of opiates as he does fentanyl/heroin every day. Cows ordered. Time: 01:18 Medical Decision Making Medical Decision Making [facility] Narrative: 33-year-old male with history of opioid use disorder presents the ER for evaluation of parasites in his stool as well as white silky things coming out of his hands and body. He reports they have been witnessed by his family and friends. His medical workup today is unremarkable. His urinalysis is positive for opiates, fentanyl and cocaine. 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 He is requesting stool studies which have been ordered to rule out true parasites. Low clinical suspicion for this. He states he can go days without drugs and all of his symptoms persist. He does not associate his symptoms with drug use. He is willing to stay in the emergency department for additional evaluation for possible detox verses inpatient psych admission. He would like to detox from drugs. Differential Diagnosis Differential Diagnoses: The differential diagnosis associated with the presentation includes Delusional parasitosis, schizophrenia, schizoaffective disorder, polysubstance abuse Admission/Observation Consideration of admission/observation: Escalation of care including admission/observation considered Lab Data [facility] Lab Attestation statement: I reviewed the patient's lab results. Normocytic anemia 08/05/23 17:51 08/05/23 17:51 Labs: Lab Results 08/05/23 08/05/23 Range/Units 17:51 17:53 WBC 10.2 (4.8-10.8) X10*3/uL RBC 4.63 (4.60-5.80) X10*6/uL Hgb 13.7 L (14.0-18.0) g/dl Hct 39.2 L (42.0-52.0) % MCV 84.7 (80.0-98.0) fL MCH 29.6 (27.0-33.0) pg MCHC 34.9 (31.0-36.0) g/dl RDW 12.6 (11.0-16.0) % Plt Count 289 (160-400) X10*3/uL MPV 8.6 L (9.4-12.4) fL Immature Gran % (Auto) 0.2 (0.0-0.4) % Neut % (Auto) 67.3 (45-73) % Lymph % (Auto) 23.8 (20-40) % [place] % (Auto) 8.3 (2-11) % Eos % (Auto) 0.2 (0-4) % Baso % (Auto) 0.2 (0-2) % Lymph # (Auto) 2.4 (1.2-4.9) X10*3/uL [place] # (Auto) 0.8 (0.1-1.2) X10*3/uL Eos # (Auto) 0.0 (0.0-0.4) X10*3/uL Baso # (Auto) 0.0 (0.0-0.2) X10*3/uL Abs Immat Gran (auto) 0.02 (0.00-0.03) X10*3/uL Absolute Neuts (auto) 6.8 (2.0-8.3) x10*3/uL Absolute Nucleated RBC 0.000 (0.0-0.012) X10*3/uL Nucleated RBC % (auto) 0.0 (0.0-0.2) /100WBC Sodium 139 (135-145) mmol/L Potassium 3.8 (3.3-5.1) mmol/L Chloride 102 (96-108) mmol/L Carbon Dioxide 29 (22-29) mmol/L Anion Gap 12 (12-20) BUN 16 (9-16) mg/dL Creatinine 0.80 (0.5-1.4) mg/dL Estim Creat Clear Calc 95.0 Estimated GFR > 60 Random Glucose 107 (60-115) mg/dL Calcium 9.3 D (8.4-10.2) mg/dL Magnesium 1.9 (1.6-2.6) mg/dL Total Bilirubin 0.3 (0.0-1.0) mg/dL AST 12 (5-37) U/L ALT 13 (0-40) U/L Alkaline Phosphatase 85 (39-117) U/L Total Protein 6.8 (6.5-8.0) g/dL Albumin 4.1 (3.5-5.0) g/dL Lipase 12 (8-78) U/L Urine Color Yellow Urine Appearance Clear Urine pH 5.5 (5.0-9.0) Ur Specific [place] 1.025 (1.005-1.025) Urine Protein Negative (Neg-Trace) mg/dL Urine Glucose (UA) Negative (Negative) mg/dL Urine Ketones Trace (Negative) mg/dL Urine Blood Negative (Negative) Urine Nitrite Negative (Negative) Ur Leukocyte Esterase Negative (Negative) Urine Opiates Screen POSITIVE H (Not Detect) Ur Buprenorphine Scrn Not Detected (Not Detect) ng/mL Ur Oxycodone Screen Not Detected (Not Detect) ng/mL Urine Methadone Screen Not Detected (Not Detect) ng/mL Urine Fentanyl Screen POSITIVE H (Not Detect) Ur Barbiturates Screen Not Detected (Not Detect) Ur Phencyclidine Scrn Not Detected (Not Detect) Ur Amphetamines Screen Not Detected (Not Detect) U Benzodiazepines Scrn Not Detected (Not Detect) Urine Cocaine Screen POSITIVE H (Not Detect) U Marijuana (THC) Screen Not Detected (Not Detect) Ethyl Alcohol < 10 mg/dL External Record Review External record reviewed: Prior outpatient labs Prescription Management I considered prescription management with: Other (Antipsychotic) Chronic Conditions Patient?s care impacted by: Other (Polysubstance abuse) Social Determinants Patient?s care significantly limited by Social Determinants of Health including: Problems related to primary support group and Other Social Determinant of Health Critical Care Time Critical Care Time Critical Care Time: No Discharge Plan Discharge Clinical Impression: Substance abuse, Delusions of parasitosis Patient Disposition: Still a Patient Prescriptions: No Action ibuprofen 600 mg tablet 600 mg PO Q6H PRN (Reason: fever or pain) Qty: 30 0RF methadone [Methadone Intensol] 10 mg/mL Concentrate 57 mg PO DAILY ondansetron 4 mg tablet,disintegrating 4 mg PO Q8H PRN (Reason: nausea and vomiting) Qty: 20 0RF cyclobenzaprine 5 mg tablet 5 mg PO TID PRN (Reason: muscle spasm) 7 Days Qty: 21 0RF Print Language: Japanese
[2023-08-05 17:59] LABS: MANUAL DIFF FLAG NO
[2023-08-05 18:04] LABS: Appearance Urine Clear; Color Urine Yellow; Glucose Urine UA Negative (Negative); Leukocyte Esterase Urine Negative (Negative); Nitrite Urine Negative (Negative); PH 5.5 (5.0-9.0); Specific Gravity - Urine 1.025 (1.005-1.025); Urine Blood Negative (Negative); Urine Ketones Trace mg/dL (Negative); Urine Protein Negative (Neg-Trace)
[2023-08-05 18:13] LABS: Amphetamine Screen Urine Not Detected (Not Detect); Barbiturates, Urine Not Detected (Not Detect); Benzodiazepines Screen Urine Not Detected (Not Detect); Buprenorphine Scr Not Detected (Not Detect); Cannabinoid Screen Urine Not Detected (Not Detect); Cocaine Screen Urine POSITIVE (Not Detect); Fentanyl, urine POSITIVE (Not Detect); Methadone Screen, Urine Not Detected (Not Detect); Opiate Screen Urine POSITIVE (Not Detect); Oxycodone Screen Urine Not Detected (Not Detect); Phencyclidine Screen Urine Not Detected (Not Detect)
[2023-08-05 18:17] LABS: Basophils Percent Auto 0.2 % (0-2); Eosinophils Percent Auto 0.2 % (0-4); Hematocrit 39.2 % (42.0-52.0); Hemoglobin 13.7 g/dl (14.0-18.0); Imm Gran Abs Auto 0.02 X10*3/uL (0.00-0.03); Imm Gran Pct Auto 0.2 % (0.0-0.4); Lymphocytes Absolute Auto 2.4 X10*3/uL (1.2-4.9); Lymphocytes Percent Auto 23.8 % (20-40); Mean Corpuscular HGB Conc 34.9 g/dl (31.0-36.0); Mean Corpuscular Hemoglobin 29.6 pg (27.0-33.0); Mean Corpuscular Volume 84.7 fL (80.0-98.0); Mean Platelet Volume 8.6 fL (9.4-12.4); Monocytes Absolute Auto 0.8 X10*3/uL (0.1-1.2); Monocytes Percent Auto 8.3 % (2-11); Neutrophils Absolute Auto 6.8 x10*3/uL (2.0-8.3); Neutrophils Percent Auto 67.3 % (45-73); Platelet Count 289 X10*3/uL (160-400); Red Blood Count 4.63 X10*6/uL (4.60-5.80); Red Cell Distribution Width 12.6 % (11.0-16.0); White Blood Count 10.2 X10*3/uL (4.8-10.8)
[2023-08-05 18:22] LABS: Alanine Aminotransferase 13 U/L (0-40); Albumin Level 4.1 g/dL (3.5-5.0); Alkaline Phosphatase 85 U/L (39-117); Anion Gap 12 (12-20); Aspartate Amino Transferase 12 U/L (5-37); Bilirubin Total 0.3 mg/dL (0.0-1.0); Blood Urea Nitrogen 16 mg/dL (9-16); Calcium 9.3 mg/dL (8.4-10.2); Carbon Dioxide 29 mmol/L (22-29); Chloride 102 mmol/L (96-108); Estimated Glomerular Filt Rate > 60; Ethanol < 10 mg/dL; Glucose Random 107 mg/dL (60-115); Lipase 12 U/L (8-78); Magnesium 1.9 mg/dL (1.6-2.6); Potassium 3.8 mmol/L (3.3-5.1); Sodium 139 mmol/L (135-145); Total Protein 6.8 g/dL (6.5-8.0)
[2023-08-05 21:43] VITALS: BP 139/82; PULSE 60; RESP 20; TEMP 36.6; O2SAT 100
[2023-08-06] VITALS (7 sets, daily range): BP systolic 128–172; BP diastolic 80–94; PULSE 49–83; RESP 16–18; TEMP 36.3–37; O2SAT 95–99; BMI 17.0
--- NOTE | 2023-08-06 | ECG_ITS ---
Test Reason : QT INTERVAL Blood Pressure : / mmHG Vent. Rate : 055 BPM Atrial Rate : 055 BPM P-R Int : 184 ms QRS Dur : 088 ms QT Int : 426 ms P-R-T Axes : 000 082 067 degrees QTc Int : 407 ms Sinus bradycardia with sinus arrhythmia Septal infarct , age undetermined Abnormal ECG When compared with ECG of 09-NOV-2022 10:06, Vent. rate has decreased BY 28 BPM Septal infarct is now Present ST elevation now present in Inferior leads T wave amplitude has increased in Anterior leads QT has shortened Referred By: Cale Vogt Electronically Signed By:NJ MADDOX
--- NOTE | 2023-08-06 07:47 | PC.NURSE ---
Assumed care of patient at 0645, patient appears to be sleeping, respirations are even and unlabored, no apparent distress is noted. Continue plan of care for S12 inpatient bedsearch
--- NOTE | 2023-08-06 10:44 | PC.NURSE ---
aware of COWS of 15, no new orders at this time. This RN also alerted Keya Mayes RN from recovery who is at the bedside with patient now
[2023-08-06] MEDS: methADONE HCl 20 MG/2 ML ORAL.CONC 10 MG PO ×4 (11:07→20:34)
[2023-08-06] MEDS: Nicotine Polacrilex 2 MG GUM BUCCAL (11:07)
--- NOTE | 2023-08-06 12:37 | PC.NURSE ---
Pt arrived to at 12:08 pm dressed in hospital attire. Pt was immediately brought into treatment room by principal technical writer and Roseanna GALICIA in order to perform safety/skin check. Pt was educated on purpose of safety check. While in treatment room, prior to initiation of safety/skin check, pt stated I do have something on me. When asked what patient had, pt responded a pipe , and then proceeded to remove a pipe from his right hospital sock. Pt stated he used the pipe for crack and heroin. When asked, pt denied having any other contraband on him. Safety/skin check then performed. No visible contraband found during check. Skin noted to have various argueta on bilateral arms, which pt stated was from IV drug use. Pt was changed into clean hospital attire. Following safety/skin check Security, donor services coordinator, Nursing Mold Repair Technician, and Leadership Will RN were notified of pipe. Security arrived to unit and assisted Roxy GALICIA with search of belongings. Vape found during belongings search, but no other contraband found in pt's belongings.
--- NOTE | 2023-08-06 12:58 | MHC.RECOVRN ---
Was contacted by ED due to pt. in active opiate W/D. Upon assessment pt was in moderate w/d scoring a 15 on most recent COWS assessment. HR, however was decreased at 60BPM manually. Pt reports daily use of heroin with last use being a few bags by nasal and inhalation. Reports last use as being last night but could not state a time. He was experiencing restlessness and agitation, anxiety, muscle cramping, yawning, and body temp. changes. Pt reports he used to take methadone and last documented dose was 57mg in 11/2022. Pt's plan is to get his health in order and continue methadone outpt. once D/C. Pt will be tx to M5 in the next few hours for psych stabilization. Consulted Lili Osei NP and methadone 10mg Q3 hours PRN W/D x 4 doses was recommended and ordered. Staff will monitor effects closely and t/w will f/u with pt. tomorrow, once admitted for full ACS consult.
[2023-08-06] MEDS: OLANZapine 5 MG TABLET PO ×2 (14:23→20:34)
[2023-08-06] MEDS: Nicotine 21 MG PATCH.TD24 TRANSDERMA (16:23)
[2023-08-06] MEDS: hydrOXYzine HCL 25 MG TABLET PO (16:24)
[2023-08-06] MEDS: Nicotine Polacrilex Lozenge 4 MG LOZENGE BUCCAL ×2 (16:26→19:14)
--- NOTE | 2023-08-06 18:21 | PC.ADMIT ---
Patient is a 33 year old guatemalan speaking male admitted to [facility] from ED POD at 12:08pm and signed a CV. Patient admitted for parasitosis, polysubstance abuse (heroin, fentanyl, cocaine) and opiate withdrawal. He reports a daily habit of 1/2 to 1 bundle of heroin daily for an unclear amount of time. Last use 08/04 but also unclear on amount used. He reports that he uses IV and also smokes, occasionally combining with cocaine. He handed in a pipe prior to the skin check which was hidden in his right sock. Paulino has a history of methadone maintenance but cannot say how long ago this was, but records indicate this was back in 2022. Denies ETOH use. Reports smoking 1/2- 1 pack of cigarettes daily and has opted for the nicotine patch and lozenges. Cooperative with part of the admission process but became increasingly irritable as withdrawal set in. Seen by the Addictions Team on the POD and started on methadone 10mg q 3 hours x 4 doses with a plan to reassess. He has had3/4 doses as of 5pm. Patient presents as very underweight, restless, flushed and agitated. He ate 100% of lunch and also dinner and is hydrating well. Paulino reports that he is infested with parasites that come out of him in his stool, and sometime through his fingers when eating sugary foods. He is convinced he needs medical treatment for this and has needed it for as far back as a year. Nutritional consult ordered. Paulino is clear that he is in opiate withdrawal, but that this other issue is distinct from his withdrawal.
[2023-08-06] MEDS: traZODone HCL 50 MG TABLET PO (20:34)
--- NOTE | 2023-08-06 21:09 | P.EN_ITS ---
Event Note Date of Service: 08/06/23 Event Note: Patient seen by pie bottomer earlier in the day while patient was in ED Reporting withdrawal sx, however unable to provide any other information such as amount of fentanyl being used and how often. At time of evaluation by RN HR was 60, but had reportedly been in the the high 40's and low 50's while in ED. Plan: methadone 10mg Q3h max 4 doses. basically to ensure HR does not drop as of this note, patient has taken all doses of methadone -6/2 AM methadone 50mg -tizanidine TID PRN for restless legs -will follow up in AM -encourage PRNs to assist with withdrawal sx Time Spent With Patient Time: Total time managing care of this patient today ____ minutes.
[2023-08-07 07:35] VITALS: BP 126/86; PULSE 72; RESP 16; TEMP 36.9; O2SAT 96
[2023-08-07 08:00] VITALS: PULSE 82
[2023-08-07] MEDS: methADONE HCl 20 MG/2 ML ORAL.CONC 50 MG PO (08:31)
[2023-08-07 08:32] LABS: Cholesterol 149 mg/dL (<200); HDL Cholesterol 54 mg/dL (>40); LDL Cholesterol Calculated 74 mg/dL (<100); Magnesium 2.1 mg/dL (1.6-2.6); Triglycerides 109 mg/dL (<150)
[2023-08-07] MEDS: Nicotine 21 MG PATCH.TD24 TRANSDERMA (08:32)
[2023-08-07] MEDS: hydrOXYzine HCL 25 MG TABLET PO ×2 (08:33→15:50)
[2023-08-07] MEDS: OLANZapine 5 MG TABLET PO ×2 (08:33→20:40)
[2023-08-07] MEDS: Acetaminophen 325 MG TABLET 650 MG PO ×2 (08:33→15:50)
[2023-08-07 08:43] LABS: Estimated Average Glucose 105 mg/dL; Hemoglobin A1c % 5.3 % (<6.0)
[2023-08-07 08:49] LABS: Free T4 (Free Thyroxine) 0.99 ng/dL (0.71-1.85); Thyroid Stimulating Hormone 0.25 uIU/mL (0.32-4.0)
[2023-08-07 09:02] LABS: Folate 9.6 ng/mL (> or = 4.0); Vitamin B12 701 pg/mL (200-900)
--- NOTE | 2023-08-07 10:07 | MHC.RECOVRN ---
Met with pt in 510 to follow up and provide support.? Pt in bed resting comfortably with some intermittent leg movement and awakens easily to voice. Pt reports feeling better and appears much more comfortable. Unable to complete full consult/eval due to pt sleeping but will request f/u from team tomorrow. ? Pt is now receiving 50mg methadone and still verbalizes wishes to continue on methadone upon D/C. T/W left pt written resources including outpatient resources and harm reduction information. Pt denies other concerns at this time.? T/w available as needed.
--- NOTE | 2023-08-07 10:57 | HO.PSYADMNOT ---
HPI Date of Service: 08/07/23 Chief Complaint: Psychosis Sources of Information: patient interviewed (sleeping, not willing to interview), chart reviewed and crisis/core team assessment reviewed HPI Subjective Notes: Awad Warning and Conditional Voluntary Healthcare Proxy: No Guardianship: No Medical Problems Affecting Mental Status: No Narrative: 33 yo male, presents in ER with report that he has white stringy things coming from his hands and other body parts, that parasites are launching and eating plastic bags that his food is in and he has seen parasites in his stool. Reports a 30 lb weight loss along with cannabis use daily. Toxicology positive for heroin (injects he reports), fentanyl and cocaine. Pt was seen by Addiction Medicine in the ER and methadone 10 mg q3h to a max of 4 doses was ordered, along with scheduled methadone 50 mg daily, and tizanidine tid prn. Pt reports a history of bipolar disorder. He is spending a good deal of time in bed. Today he declines to meet, and is asleep and detoxing without difficulty. Past Psychiatric History: IP: Affirms OP: No current [facility] Medical Evaluation Reviewed: Yes [facility] Medical History (Updated 08/07/23 @ 15:35 by Desirae Lopez, FOOD AND BEVERAGE ASSISTANT MANAGER) Cannabis use disorder Cocaine use disorder Opioid use disorder Substance abuse Narrative: Pt is not willing to meet today. Diagnostics Vital Signs (24Hr): Vital Signs - 24 hr 08/06/23 11:37 08/06/23 12:10 08/06/23 20:00 Temperature 97.4 F 98.1 F 98.1 F Pulse Rate 68 70 83 Respiratory Rate 16 16 18 Blood Pressure 128/92 H 140/90 H 172/94 H Pulse Oximetry 95 95 98 Oxygen Delivery Method Room Air Room Air Room Air 08/07/23 07:35 Temperature 98.4 F Pulse Rate 72 Respiratory Rate 16 Blood Pressure 126/86 Pulse Oximetry 96 Oxygen Delivery Method Room Air BMI result Body Mass Index 17.0 Labs 08/05/23 17:51 08/05/23 17:51 Labs: Laboratory Results - last 48 hr 08/05/23 08/05/23 08/07/23 17:51 17:53 07:49 WBC 10.2 RBC 4.63 Hgb 13.7 L Hct 39.2 L MCV 84.7 MCH 29.6 MCHC 34.9 RDW 12.6 Plt Count 289 MPV 8.6 L Immature Gran % (Auto) 0.2 Neut % (Auto) 67.3 Lymph % (Auto) 23.8 [place] % (Auto) 8.3 Eos % (Auto) 0.2 Baso % (Auto) 0.2 Lymph # (Auto) 2.4 [place] # (Auto) 0.8 Eos # (Auto) 0.0 Baso # (Auto) 0.0 Abs Immat Gran (auto) 0.02 Absolute Neuts (auto) 6.8 Absolute Nucleated RBC 0.000 Nucleated RBC % (auto) 0.0 Sodium 139 Potassium 3.8 Chloride 102 Carbon Dioxide 29 Anion Gap 12 BUN 16 Creatinine 0.80 Estim Creat Clear Calc 95.0 Estimated GFR > 60 Random Glucose 107 Estimat Average Glucose 105 Hemoglobin A1c % 5.3 Calcium 9.3 D Magnesium 1.9 2.1 Total Bilirubin 0.3 AST 12 ALT 13 Alkaline Phosphatase 85 Total Protein 6.8 Albumin 4.1 Triglycerides 109 Cholesterol 149 LDL Cholesterol, Calc 74 HDL Cholesterol 54 Lipase 12 Vitamin B12 701 Folate 9.6 TSH 0.25 L Free T4 0.99 Urine Color Yellow Urine Appearance Clear Urine pH 5.5 Ur Specific [place] 1.025 Urine Protein Negative Urine Glucose (UA) Negative Urine Ketones Trace Urine Blood Negative Urine Nitrite Negative Ur Leukocyte Esterase Negative Urine Opiates Screen POSITIVE H Ur Buprenorphine Scrn Not Detected Ur Oxycodone Screen Not Detected Urine Methadone Screen Not Detected Urine Fentanyl Screen POSITIVE H Ur Barbiturates Screen Not Detected Ur Phencyclidine Scrn Not Detected Ur Amphetamines Screen Not Detected U Benzodiazepines Scrn Not Detected Urine Cocaine Screen POSITIVE H U Marijuana (THC) Screen Not Detected Ethyl Alcohol < 10 EKG EKG: reviewed EKG Comment: QTc 407, septal infarct, sinus bradycardia. Discussed with ER team, they suggest cardiology consult. Meds/Allergies Meds Home Medications ?Medication ?Instructions ?Recorded ?Confirmed ?Type No Known Home Meds 08/06/23 08/06/23 History Allergies Allergies Allergy/AdvReac Type Severity Reaction Status Date / Time No Known Allergies Allergy Verified 08/05/23 17:28 Mental Status Exam Mental Status Exam Patient Appearance: Fatigued and Disheveled Patient Orientation: Person, Place and Situation Level of Consciousness: Drowsy Patient Behavior: Sedated Mood Description: Withdrawn Affect Description: Withdrawn Patient Cognition Impaired: No Ability to Follow Directions: Fair Speech Pattern: Spontaneous Speech Hallucinations: Visual Delusions: Paranoid Ideation and Present Thought Content: positive for Circumstantial Depressive Symptoms: Increased Fatigue and Loss of Energy Judgement: Fair Assessment & Plan Assessment & Plan (1) Bipolar disorder with psychotic features: Status: Acute Code(s): F31.9 - Bipolar disorder, unspecified (2) Delusions of parasitosis: Status: Acute Code(s): F22 - Delusional disorders (3) Opioid use disorder: Status: Acute Code(s): F11.90 - Opioid use, unspecified, uncomplicated (4) Cocaine use disorder: Status: Acute Code(s): F14.10 - Cocaine abuse, uncomplicated (5) Cannabis use disorder: Status: Acute Code(s): F12.90 - Cannabis use, unspecified, uncomplicated Plan 33 yo male, presents with hx of bipolar disorder reported, positive toxicology for heroin, fentanyl, cocaine and reports of parasites, white stringy things coming from his hands and other body parts along with parasites in his stool. Plan: Olanzapine 5 mg bid and 5 mg tid prn psychosis Per addiction medicine, Methadone 50 mg daily, tizanidine prn Diagnostics -await ova/parasite culture results cardiology consult when pt is able to provide more history based on current EKG results Patient educated on: other Reason for continued inpatient stay Substantial Risk for: rapid decompensation Statement Statement: I have reviewed the history and physical and performed a pertinent examination on my patient. No changes have occurred unless specified. If the History and Physical was not performed prior to admission, the Hospitalist's service will be consulted for completing the admission physical. Time Spent With Patient Time: Total time managing care of this patient today ____ minutes.
[2023-08-07 15:45] VITALS: PULSE 85
[2023-08-07 15:49] VITALS: BP 145/83; PULSE 85; RESP 18; TEMP 36.9; O2SAT 96
[2023-08-07] MEDS: TiZANidine HCL 4 MG TABLET PO (15:50)
[2023-08-07 19:58] VITALS: BP 126/75; PULSE 69; RESP 18; TEMP 36.7
[2023-08-07] MEDS: traZODone HCL 50 MG TABLET PO (20:40)
[2023-08-07] MEDS: Nicotine Polacrilex Lozenge 4 MG LOZENGE BUCCAL (22:45)
[2023-08-08 07:30] VITALS: BP 150/95; PULSE 86; RESP 16; TEMP 37.2; O2SAT 99
[2023-08-08 08:00] VITALS: PULSE 86
[2023-08-08] MEDS: methADONE HCl 20 MG/2 ML ORAL.CONC 50 MG PO (08:02)
[2023-08-08] MEDS: Multivitamin TABLET 1 TAB PO (08:03)
[2023-08-08] MEDS: OLANZapine 5 MG TABLET PO ×2 (08:03→20:22)
[2023-08-08] MEDS: Thiamine HCL 100 MG TABLET PO (08:03)
[2023-08-08] MEDS: Folic Acid 1 MG TABLET PO (08:03)
[2023-08-08] MEDS: Nicotine 21 MG PATCH.TD24 TRANSDERMA (08:45)
--- NOTE | 2023-08-08 09:44 | HO.PSYCHPN ---
Subjective Subjective Date of Service: 08/08/23 Reason For Visit: Psychosis Subjective Notes: Conditional Voluntary Interim History: Paulino continues to spend a great deal of time in bed. Today, he declines to meet, stating he is well, improving, but has depression, needs to sleep and is responding to methadone with increase in relief. He denies SI/HI/AH/VH. Medication Compliance: Yes Side effects from medications: No Attending Groups: No Review of Systems Acute medical concerns: No Medical Review of Systems: unchanged Review of Systems Review of Systems Yes all other systems are reviewed and are negative Mental Status Exam Mental Status Exam Patient Appearance: Fatigued and Disheveled Patient Orientation: Person, Place and Situation Level of Consciousness: Drowsy Patient Behavior: Sedated Mood Description: Withdrawn Affect Description: Withdrawn Patient Cognition Impaired: No Ability to Follow Directions: Fair Speech Pattern: Spontaneous Speech Hallucinations: Visual Delusions: Paranoid Ideation and Present Thought Content: positive for Circumstantial Depressive Symptoms: Increased Fatigue and Loss of Energy Judgement: Fair Diagnostics Vital Signs (24Hr): Vital Signs - 24 hr 08/07/23 15:49 08/07/23 19:58 Temperature 98.5 F 98.1 F Pulse Rate 85 69 Respiratory Rate 18 18 Blood Pressure 145/83 H 126/75 Pulse Oximetry 96 Oxygen Delivery Method Room Air BMI result Body Mass Index 17.0 Labs 08/05/23 17:51 08/05/23 17:51 Labs: Laboratory Results - last 48 hr 08/07/23 07:49 Estimat Average Glucose 105 Hemoglobin A1c % 5.3 Magnesium 2.1 Triglycerides 109 Cholesterol 149 LDL Cholesterol, Calc 74 HDL Cholesterol 54 Vitamin B12 701 Folate 9.6 TSH 0.25 L Free T4 0.99 Medications Medications Current Medications Acetaminophen (Acetaminophen 325 Mg Tablet) 650 mg PO Q6H PRN PRN Reason: Headache/Pain Mild Scale (1-3) Last Admin: 08/07/23 15:50 Dose: 650 mg Al Hydroxide/Mg Hydroxide (Magnesium Hydrox/Alum Hydrox 30 Ml Oral.Susp) 30 ml PO Q6H PRN PRN Reason: Heartburn/Nausea Folic Acid (Folic Acid 1 Mg Tablet) 1 mg PO DAILY CARINE Last Admin: 08/08/23 08:03 Dose: 1 mg Hydroxyzine HCl (Hydroxyzine Hcl 25 Mg Tablet) 25 mg PO Q6H PRN PRN Reason: Anxiety Last Admin: 08/07/23 15:50 Dose: 25 mg Magnesium Hydroxide (Milk Of Magnesia 30 Ml Oral.Susp) 30 ml PO DAILY PRN PRN Reason: Constipation Methadone HCl (Methadone Hcl 20 Mg/2 Ml Oral.Conc) 50 mg PO DAILY [facility] Last Admin: 08/08/23 08:02 Dose: 50 mg Multivitamins/Vitamin C (Multivitamin Tablet) 1 tab PO DAILY [facility] Last Admin: 08/08/23 08:03 Dose: 1 tab Nicotine (Nicotine 21 Mg Patch.Td24) 21 mg TRANSDERMA DAILY [facility] Last Admin: 08/08/23 08:45 Dose: 21 mg Nicotine Polacrilex (Nicotine Polacrilex Lozenge 4 Mg Lozenge) 4 mg BUCCAL Q2H PRN PRN Reason: Nicotine Cravings Last Admin: 08/07/23 22:45 Dose: 4 mg Olanzapine (Olanzapine 5 Mg Tablet) 5 mg PO BID [facility] Last Admin: 08/08/23 08:03 Dose: 5 mg Olanzapine (Olanzapine 5 Mg Tablet) 5 mg PO TID PRN PRN Reason: psychosis Last Admin: 08/06/23 14:23 Dose: 5 mg Thiamine HCl (Thiamine Hcl 100 Mg Tablet) 100 mg PO DAILY [facility] Last Admin: 08/08/23 08:03 Dose: 100 mg Tizanidine HCl (Tizanidine Hcl 4 Mg Tablet) 4 mg PO TID PRN PRN Reason: Restlessness Last Admin: 08/07/23 15:50 Dose: 4 mg Trazodone HCl (Trazodone Hcl 50 Mg Tablet) 50 mg PO BEDTIME MRX1 PRN PRN Reason: Insomnia Last Admin: 08/07/23 20:40 Dose: 50 mg Allergies Allergies Allergy/AdvReac Type Severity Reaction Status Date / Time No Known Allergies Allergy Verified 08/05/23 17:28 Assessment & Plan Assessment & Plan (1) Bipolar disorder with psychotic features: Status: Acute Code(s): F31.9 - Bipolar disorder, unspecified (2) Delusions of parasitosis: Status: Acute Code(s): F22 - Delusional disorders (3) Opioid use disorder: Status: Acute Code(s): F11.90 - Opioid use, unspecified, uncomplicated (4) Cocaine use disorder: Status: Acute Code(s): F14.10 - Cocaine abuse, uncomplicated (5) Cannabis use disorder: Status: Acute Code(s): F12.90 - Cannabis use, unspecified, uncomplicated Plan 33 yo male, presents with hx of bipolar disorder reported, positive toxicology for heroin, fentanyl, cocaine and reports of parasites, white stringy things coming from his hands and other body parts along with parasites in his stool. Plan: Olanzapine 5 mg bid and 5 mg tid prn psychosis Per addiction medicine, Methadone 50 mg daily, tizanidine prn Diagnostics -await ova/parasite culture results cardiology consult when pt is able to provide more history based on current EKG results 08/07- Continue current regime Informed Consent: understands Reason for continued inpatient stay Substantial Risk for: rapid decompensation Time Spent With Patient Time: Total time managing care of this patient today ____ minutes.
--- NOTE | 2023-08-08 13:15 | HO.ADDICTPRO ---
Subjective Subjective Date of Service: 08/08/23 Reason For Visit: Psychosis Interim History: Patient currently admitted to unit. Started on methadone while in ED to address withdrawal sx. Dose titrated up to 50mg daily. Seen on M5. Patient in bed, eyes closed but easily awoken and able to engage in discussion. Appearing comfortable. No restlessness or diaphoresis noted. He reports opiate withdrawal sx have resolved. Reports that he was previously on Methadone 57mg daily. Reports feeling comfortable with current dose. He reports using 1/2 bundle (5 bags) daily prior to admission. He would like to remain on current dose. Review of Systems Constitutional: Reports as per HPI and Reports fatigue (tired) Endocrine: Reports fatigue (tired) Mental Status Exam Mental Status Exam Level of Consciousness: Appropriate Patient Behavior: Appropriate (laying in bed, but awake and talkative with eyes closed) Mood Description: Calm Affect Description: Calm Diagnostics Vital Signs (24Hr): Vital Signs - 24 hr 08/07/23 15:49 08/07/23 19:58 08/08/23 07:30 Temperature 98.5 F 98.1 F 98.9 F Pulse Rate 85 69 86 Respiratory Rate 18 18 16 Blood Pressure 145/83 H 126/75 150/95 H Pulse Oximetry 96 99 Oxygen Delivery Method Room Air Room Air BMI result Body Mass Index 17.0 Labs 08/05/23 17:51 08/05/23 17:51 Labs: Laboratory Results - last 48 hr 08/07/23 07:49 Estimat Average Glucose 105 Hemoglobin A1c % 5.3 Magnesium 2.1 Triglycerides 109 Cholesterol 149 LDL Cholesterol, Calc 74 HDL Cholesterol 54 Vitamin B12 701 Folate 9.6 TSH 0.25 L Free T4 0.99 Medications Medications Current Medications Acetaminophen (Acetaminophen 325 Mg Tablet) 650 mg PO Q6H PRN PRN Reason: Headache/Pain Mild Scale (1-3) Last Admin: 08/07/23 15:50 Dose: 650 mg Al Hydroxide/Mg Hydroxide (Magnesium Hydrox/Alum Hydrox 30 Ml Oral.Susp) 30 ml PO Q6H PRN PRN Reason: Heartburn/Nausea Folic Acid (Folic Acid 1 Mg Tablet) 1 mg PO DAILY [facility] Last Admin: 08/08/23 08:03 Dose: 1 mg Hydroxyzine HCl (Hydroxyzine Hcl 25 Mg Tablet) 25 mg PO Q6H PRN PRN Reason: Anxiety Last Admin: 08/07/23 15:50 Dose: 25 mg Magnesium Hydroxide (Milk Of Magnesia 30 Ml Oral.Susp) 30 ml PO DAILY PRN PRN Reason: Constipation Methadone HCl (Methadone Hcl 20 Mg/2 Ml Oral.Conc) 50 mg PO DAILY [facility] Last Admin: 08/08/23 08:02 Dose: 50 mg Multivitamins/Vitamin C (Multivitamin Tablet) 1 tab PO DAILY [facility] Last Admin: 08/08/23 08:03 Dose: 1 tab Nicotine (Nicotine 21 Mg Patch.Td24) 21 mg TRANSDERMA DAILY [facility] Last Admin: 08/08/23 08:45 Dose: 21 mg Nicotine Polacrilex (Nicotine Polacrilex Lozenge 4 Mg Lozenge) 4 mg BUCCAL Q2H PRN PRN Reason: Nicotine Cravings Last Admin: 08/07/23 22:45 Dose: 4 mg Olanzapine (Olanzapine 5 Mg Tablet) 5 mg PO BID [facility] Last Admin: 08/08/23 08:03 Dose: 5 mg Olanzapine (Olanzapine 5 Mg Tablet) 5 mg PO TID PRN PRN Reason: psychosis Last Admin: 08/06/23 14:23 Dose: 5 mg Thiamine HCl (Thiamine Hcl 100 Mg Tablet) 100 mg PO DAILY [facility] Last Admin: 08/08/23 08:03 Dose: 100 mg Tizanidine HCl (Tizanidine Hcl 4 Mg Tablet) 4 mg PO TID PRN PRN Reason: Restlessness Last Admin: 08/07/23 15:50 Dose: 4 mg Trazodone HCl (Trazodone Hcl 50 Mg Tablet) 50 mg PO BEDTIME MRX1 PRN PRN Reason: Insomnia Last Admin: 08/07/23 20:40 Dose: 50 mg Allergies Allergies Allergy/AdvReac Type Severity Reaction Status Date / Time No Known Allergies Allergy Verified 08/05/23 17:28 Assessment & Plan Assessment & Plan (1) Opioid use disorder: Status: Acute Code(s): F11.90 - Opioid use, unspecified, uncomplicated Assessment and Plan: continue methadone at current dose (50mg daily) SW to coordinate referral to OTP likely withdrawing from cocaine as well given how much he has been sleeping--he does not appear sedated and is appropriate when he does engage no additional follow up needed at this time, unless requested by patient or provider Total time managing care of this patient today _15___ minutes.
--- NOTE | 2023-08-08 14:18 | MHC.CLN ---
NUTRITION CONSULT FOR WEIGHT LOSS. REVIEW OF WEIGHT HX SHOWS WEIGHT LOSS -16.3% X 9 MONTHS. PATIENT IS UNDERWEIGHT WITH BMI=17. POLYSUBSTANCE ABUSE AND BIPOLAR DISORDER LIKELY CONTRIBUTORS TO WEIGHT LOSS. ADDING ENSURE TID TO PROMOTE NUTRITIONAL INTAKE. SUPPLEMENT PROVIDES 1050 KCALS, 60 G PROTEIN. PLEASE CONSULT RD IF PATIENT WITH POOR PO.
[2023-08-08 16:00] VITALS: PULSE 100
[2023-08-08 20:00] VITALS: BP 121/59; PULSE 96; RESP 16; TEMP 36.9; O2SAT 90
[2023-08-08] MEDS: Acetaminophen 325 MG TABLET 650 MG PO (20:22)
[2023-08-08] MEDS: Milk of Magnesia 30 ML ORAL.SUSP PO (20:22)
[2023-08-09 08:00] VITALS: BP 121/65; PULSE 65; RESP 16; TEMP 36.4; O2SAT 97
[2023-08-09] MEDS: Nicotine 21 MG PATCH.TD24 TRANSDERMA (08:55)
[2023-08-09] MEDS: methADONE HCl 20 MG/2 ML ORAL.CONC 50 MG PO (08:56)
[2023-08-09] MEDS: hydrOXYzine HCL 25 MG TABLET PO (08:57)
[2023-08-09] MEDS: OLANZapine 5 MG TABLET PO ×2 (08:57→21:26)
[2023-08-09] MEDS: Multivitamin TABLET 1 TAB PO (08:57)
[2023-08-09] MEDS: Folic Acid 1 MG TABLET PO (08:57)
[2023-08-09] MEDS: Thiamine HCL 100 MG TABLET PO (08:57)
[2023-08-09] MEDS: bisacodyL 5 MG TABLET.DR 10 MG PO (14:26)
[2023-08-09 16:00] VITALS: PULSE 68
--- NOTE | 2023-08-09 16:27 | P.PNPSI_ITS ---
Subjective Subjective Date of Service: 08/09/23 Reason For Visit: Psychosis Subjective Notes: Conditional Voluntary Interim History: Pt able to meet with team today when he learned he was on a missing person list. Pt able to contact family, friends, employer and assure them of his safety. Reports severe depression for a few years with a history of a bipolar depression diagnosis. Reports weight loss [phone] with inability to process food and sternal inversion as issues he is in process of evaluating. Reports he is due to endoscopy/colonoscopy and has been consulting with [facility]. Reports being clean for 6 years and resuming drug use so he can function and attend work. If not I cannot function. Medical care has been inconsistent due to insurance issues. Reports med trials since age 10. Medication Compliance: Yes Attending Groups: No Review of Systems Acute medical concerns: No Medical Review of Systems: unchanged Review of Systems Review of Systems GI Sx Weight loss Mental Status Exam Mental Status Exam Patient Appearance: Appropriate Patient Orientation: Person, Place, Time and Situation Level of Consciousness: Alert Patient Behavior: Talkative, Cooperative and Good Eye Contact Mood Description: Depressed and Anxious Affect Description: Constricted Patient Cognition Impaired: No Ability to Follow Directions: Good Speech Pattern: Spontaneous Speech Memory Description: Intact Hallucinations: None Delusions: Not Present Thought Process: Rumination Thought Content: positive for Perseveration Depressive Symptoms: Significant Weight Loss Judgement: Fair Diagnostics Vital Signs (24Hr): Vital Signs - 24 hr 08/08/23 20:00 08/09/23 08:00 Temperature 98.5 F 97.6 F Pulse Rate 96 65 Respiratory Rate 16 16 Blood Pressure 121/59 L 121/65 Pulse Oximetry 90 L 97 Oxygen Delivery Method Room Air Room Air BMI result Body Mass Index 17.0 Labs 08/05/23 17:51 08/05/23 17:51 Medications Medications Current Medications Acetaminophen (Acetaminophen 325 Mg Tablet) 650 mg PO Q6H PRN PRN Reason: Headache/Pain Mild Scale (1-3) Last Admin: 08/08/23 20:22 Dose: 650 mg Al Hydroxide/Mg Hydroxide (Magnesium Hydrox/Alum Hydrox 30 Ml Oral.Susp) 30 ml PO Q6H PRN PRN Reason: Heartburn/Nausea Folic Acid (Folic Acid 1 Mg Tablet) 1 mg PO DAILY [facility] Last Admin: 08/09/23 08:57 Dose: 1 mg Hydroxyzine HCl (Hydroxyzine Hcl 25 Mg Tablet) 25 mg PO Q6H PRN PRN Reason: Anxiety Last Admin: 08/09/23 08:57 Dose: 25 mg Magnesium Hydroxide (Milk Of Magnesia 30 Ml Oral.Susp) 30 ml PO DAILY PRN PRN Reason: Constipation Last Admin: 08/08/23 20:22 Dose: 30 ml Methadone HCl (Methadone Hcl 20 Mg/2 Ml Oral.Conc) 50 mg PO DAILY [facility] Last Admin: 08/09/23 08:56 Dose: 50 mg Multivitamins/Vitamin C (Multivitamin Tablet) 1 tab PO DAILY [facility] Last Admin: 08/09/23 08:57 Dose: 1 tab Nicotine (Nicotine 21 Mg Patch.Td24) 21 mg TRANSDERMA DAILY [facility] Last Admin: 08/09/23 08:55 Dose: 21 mg Nicotine Polacrilex (Nicotine Polacrilex Lozenge 4 Mg Lozenge) 4 mg BUCCAL Q2H PRN PRN Reason: Nicotine Cravings Last Admin: 08/07/23 22:45 Dose: 4 mg Olanzapine (Olanzapine 5 Mg Tablet) 5 mg PO BID [facility] Last Admin: 08/09/23 08:57 Dose: 5 mg Olanzapine (Olanzapine 5 Mg Tablet) 5 mg PO TID PRN PRN Reason: psychosis Last Admin: 08/06/23 14:23 Dose: 5 mg Thiamine HCl (Thiamine Hcl 100 Mg Tablet) 100 mg PO DAILY [facility] Last Admin: 08/09/23 08:57 Dose: 100 mg Tizanidine HCl (Tizanidine Hcl 4 Mg Tablet) 4 mg PO TID PRN PRN Reason: Restlessness Last Admin: 08/07/23 15:50 Dose: 4 mg Trazodone HCl (Trazodone Hcl 50 Mg Tablet) 50 mg PO BEDTIME MRX1 PRN PRN Reason: Insomnia Last Admin: 08/07/23 20:40 Dose: 50 mg Allergies Allergies Allergy/AdvReac Type Severity Reaction Status Date / Time No Known Allergies Allergy Verified 08/05/23 17:28 Assessment & Plan Assessment & Plan (1) Opioid use disorder: Status: Acute Code(s): F11.90 - Opioid use, unspecified, uncomplicated Assessment and Plan: * continue methadone at current dose (50mg daily) * SW to coordinate referral to OTP * likely withdrawing from cocaine as well given how much he has been sleeping--he does not appear sedated and is appropriate when he does engage * no additional follow up needed at this time, unless requested by patient or provider (2) Bipolar disorder with psychotic features: Status: Acute Code(s): F31.9 - Bipolar disorder, unspecified Plan 08/08: Continue regime Message left for [facility] GI to discuss their recommendations Hospitalist consult-weight loss, GI sx, ?eye infection from contacts. Informed Consent: understands Reason for continued inpatient stay Substantial Risk for: med/psych decompensation Time Spent With Patient Time: Total time managing care of this patient today ____ minutes.
[2023-08-09] MEDS: Nicotine Polacrilex Lozenge 4 MG LOZENGE BUCCAL (18:29)
[2023-08-09 20:00] VITALS: BP 138/85; PULSE 74; RESP 16; TEMP 36.8; O2SAT 97
[2023-08-09] MEDS: Acetaminophen 325 MG TABLET 650 MG PO (21:25)
[2023-08-10 08:00] VITALS: BP 109/61; PULSE 57; RESP 16; TEMP 36.9; O2SAT 99
[2023-08-10] MEDS: Nicotine 21 MG PATCH.TD24 TRANSDERMA (08:50)
[2023-08-10] MEDS: Multivitamin TABLET 1 TAB PO (08:51)
[2023-08-10] MEDS: methADONE HCl 20 MG/2 ML ORAL.CONC 50 MG PO (08:51)
[2023-08-10] MEDS: OLANZapine 5 MG TABLET PO ×2 (08:51→21:10)
[2023-08-10] MEDS: Thiamine HCL 100 MG TABLET PO (08:51)
[2023-08-10] MEDS: Folic Acid 1 MG TABLET PO (08:51)
--- NOTE | 2023-08-10 10:19 | PM.EVENT ---
Event Note Date of Service: 08/10/23 Event Note: 33-year-old male admitted to adult Psychiatry with consult placed to hospitalist service for evaluation of bilateral eye infection and weight loss. The patient reports that he has lost about 10 lb over the last few months unintentionally. However, he has been following with [facility] gastroenterology and is scheduled for colonoscopy and endoscopy pending insurance approval. Has no current GI symptoms including nausea, vomiting, diarrhea and is tolerating diet. Would recommend patient continue following outpatient with [facility]. He also tells me that since admission, he has been sleeping with his contact lenses in as he did not have a case for them. Starting yesterday, developed significant redness with purulent drainage from the eyes bilaterally as well as crusting when he wakes up. He occasionally has blurred vision upon waking but this clears. Denies any pain in the eyes, vision loss, light sensitivity. On exam, he is noted to have purulent drainage from the eyes bilaterally with conjunctival injection bilaterally. Given bacterial conjunctivitis is related to contact lens wearing, would recommend moxifloxacin 3 times daily x1 week. Outpatient follow-up with ophthalmology if symptoms persist. Thank you for allowing me to participate in this consult. Signing off at this time. Please do not hesitate to call for further questions or for any acute medical concerns Time Spent With Patient Time: Total time managing care of this patient today ____ minutes.
--- NOTE | 2023-08-10 10:54 | P.PNPSI_ITS ---
Subjective Subjective Date of Service: 08/10/23 Reason For Visit: Psychosis Subjective Notes: Conditional Voluntary Interim History: Pt reports sleeping and eating better. He reports he is not feeling parasites in hands and arms. He does think he had parasites and awaiting stool sample, although this is unlikely. He is taking medications as prescribed. he denies SI/HI. He signed 3 day, hopes to be discharged by Tuesday. Medication Compliance: Yes Review of Systems Review of Systems GI Sx Weight loss Yes all other systems are reviewed and are negative and Unobtainable due to mental status Constitutional: Reports as per HPI and Reports fatigue (tired) Endocrine: Reports fatigue (tired) Mental Status Exam Mental Status Exam Patient Appearance: Appropriate Patient Orientation: Person, Place, Time and Situation Level of Consciousness: Alert Patient Behavior: Talkative, Cooperative and Good Eye Contact Mood Description: Depressed and Anxious Affect Description: Constricted Patient Cognition Impaired: No Ability to Follow Directions: Good Speech Pattern: Spontaneous Speech Memory Description: Intact Diagnostics Vital Signs (24Hr): Vital Signs - 24 hr 08/09/23 20:00 Temperature 98.3 F Pulse Rate 74 Respiratory Rate 16 Blood Pressure 138/85 Pulse Oximetry 97 Oxygen Delivery Method Room Air BMI result Body Mass Index 17.0 Labs 08/05/23 17:51 08/05/23 17:51 Medications Medications Current Medications Acetaminophen (Acetaminophen 325 Mg Tablet) 650 mg PO Q6H PRN PRN Reason: Headache/Pain Mild Scale (1-3) Last Admin: 08/09/23 21:25 Dose: 650 mg Al Hydroxide/Mg Hydroxide (Magnesium Hydrox/Alum Hydrox 30 Ml Oral.Susp) 30 ml PO Q6H PRN PRN Reason: Heartburn/Nausea Artificial Tears (Artificial Tears 15 Ml Drops) 1 drop EYE-BOTH Q4H PRN PRN Reason: Dry Eyes Folic Acid (Folic Acid 1 Mg Tablet) 1 mg PO DAILY [facility] Last Admin: 08/10/23 08:51 Dose: 1 mg Hydroxyzine HCl (Hydroxyzine Hcl 25 Mg Tablet) 25 mg PO Q6H PRN PRN Reason: Anxiety Last Admin: 08/09/23 08:57 Dose: 25 mg Magnesium Hydroxide (Milk Of Magnesia 30 Ml Oral.Susp) 30 ml PO DAILY PRN PRN Reason: Constipation Last Admin: 08/08/23 20:22 Dose: 30 ml Methadone HCl (Methadone Hcl 20 Mg/2 Ml Oral.Conc) 50 mg PO DAILY [facility] Last Admin: 08/10/23 08:51 Dose: 50 mg Moxifloxacin HCl (Moxifloxacin Hcl 0.5 % Oph Bhargavi 3 Ml Drpbtl) 1 drop EYE-BOTH TID [facility] Stop: 08/17/23 10:19 Multivitamins/Vitamin C (Multivitamin Tablet) 1 tab PO DAILY [facility] Last Admin: 08/10/23 08:51 Dose: 1 tab Nicotine (Nicotine 21 Mg Patch.Td24) 21 mg TRANSDERMA DAILY [facility] Last Admin: 08/10/23 08:50 Dose: 21 mg Nicotine Polacrilex (Nicotine Polacrilex Lozenge 4 Mg Lozenge) 4 mg BUCCAL Q2H PRN PRN Reason: Nicotine Cravings Last Admin: 08/09/23 18:29 Dose: 4 mg Olanzapine (Olanzapine 5 Mg Tablet) 5 mg PO BID [facility] Last Admin: 08/10/23 08:51 Dose: 5 mg Olanzapine (Olanzapine 5 Mg Tablet) 5 mg PO TID PRN PRN Reason: psychosis Last Admin: 08/06/23 14:23 Dose: 5 mg Thiamine HCl (Thiamine Hcl 100 Mg Tablet) 100 mg PO DAILY [facility] Last Admin: 08/10/23 08:51 Dose: 100 mg Tizanidine HCl (Tizanidine Hcl 4 Mg Tablet) 4 mg PO TID PRN PRN Reason: Restlessness Last Admin: 08/07/23 15:50 Dose: 4 mg Trazodone HCl (Trazodone Hcl 50 Mg Tablet) 50 mg PO BEDTIME MRX1 PRN PRN Reason: Insomnia Last Admin: 08/07/23 20:40 Dose: 50 mg Allergies Allergies Allergy/AdvReac Type Severity Reaction Status Date / Time No Known Allergies Allergy Verified 08/05/23 17:28 Assessment & Plan Assessment & Plan (1) Opioid use disorder: Status: Acute Code(s): F11.90 - Opioid use, unspecified, uncomplicated Assessment and Plan: * continue methadone at current dose (50mg daily) * SW to coordinate referral to OTP * likely withdrawing from cocaine as well given how much he has been sleeping--he does not appear sedated and is appropriate when he does engage * no additional follow up needed at this time, unless requested by patient or provider (2) Bipolar disorder with psychotic features: Status: Acute Code(s): F31.9 - Bipolar disorder, unspecified Plan 08/08: Continue regime Message left for [facility] GI to discuss their recommendations Hospitalist consult-weight loss, GI sx, ?eye infection from contacts. 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 signed 3 day. no safety concerns other than chronic substance use including cocaine, weight loss. Reason for continued inpatient stay Substantial Risk for: inability to function Time Spent With Patient Time: Total time managing care of this patient today ____ minutes.
[2023-08-10] MEDS: Moxifloxacin HCl 0.5 % Oph Sol 3 ML DRPBTL 1 DROP EYE-BOTH ×3 (13:32→21:09)
[2023-08-10] MEDS: Nicotine Polacrilex Lozenge 4 MG LOZENGE BUCCAL ×2 (15:23→19:00)
[2023-08-10 20:00] VITALS: BP 142/65; PULSE 69; RESP 16; TEMP 36.6; O2SAT 97
[2023-08-10] MEDS: Melatonin 3 MG TABLET 6 MG PO (21:10)
[2023-08-10] MEDS: hydrOXYzine HCL 25 MG TABLET PO (21:10)
[2023-08-11 07:00] VITALS: BMI 17.9
[2023-08-11 08:00] VITALS: BP 111/57; PULSE 52; RESP 16; TEMP 36.8; O2SAT 96
[2023-08-11 08:27] VITALS: PULSE 59
[2023-08-11] MEDS: methADONE HCl 20 MG/2 ML ORAL.CONC 50 MG PO (08:29)
[2023-08-11] MEDS: Moxifloxacin HCl 0.5 % Oph Sol 3 ML DRPBTL 1 DROP EYE-BOTH ×3 (08:30→20:01)
[2023-08-11] MEDS: Thiamine HCL 100 MG TABLET PO (08:30)
[2023-08-11] MEDS: OLANZapine 5 MG TABLET PO ×2 (08:30→20:01)
[2023-08-11] MEDS: Folic Acid 1 MG TABLET PO (08:30)
[2023-08-11] MEDS: Multivitamin TABLET 1 TAB PO (08:30)
[2023-08-11] MEDS: Nicotine 21 MG PATCH.TD24 TRANSDERMA (08:35)
--- NOTE | 2023-08-11 10:14 | HO.PSYCHPN ---
Subjective Subjective Date of Service: 08/11/23 Reason For Visit: Psychosis Subjective Notes: 3 Day Interim History: Pt reports sleeping and eating better. He continues to denied SI/HI. He was started on methadone here but his insurance does not cover methadone outpatient. discussed with pt retracting 3 day to address either change to suboxone or alternative insurance option. He insists he still wants to go even in the face of potential withdrawal. No overt psychosis or delusions. Review of Systems Review of Systems GI Sx Weight loss Yes all other systems are reviewed and are negative and Unobtainable due to mental status Constitutional: Reports as per HPI and Reports fatigue (tired) Endocrine: Reports fatigue (tired) Mental Status Exam Mental Status Exam Patient Appearance: Unkempt Patient Orientation: Person, Place, Time and Situation Level of Consciousness: Alert Patient Behavior: Talkative, Cooperative and Good Eye Contact Mood Description: Depressed and Anxious Affect Description: Constricted Patient Cognition Impaired: No Ability to Follow Directions: Good Speech Pattern: Spontaneous Speech Memory Description: Intact Diagnostics Vital Signs (24Hr): Vital Signs - 24 hr 08/10/23 20:00 08/11/23 08:00 08/11/23 08:27 Temperature 98 F 98.2 F Pulse Rate 69 52 59 Respiratory Rate 16 16 Blood Pressure 142/65 H 111/57 L Pulse Oximetry 97 96 Oxygen Delivery Method Room Air Room Air BMI result Body Mass Index 17.0 Labs 08/05/23 17:51 08/05/23 17:51 Medications Medications Current Medications Acetaminophen (Acetaminophen 325 Mg Tablet) 650 mg PO Q6H PRN PRN Reason: Headache/Pain Mild Scale (1-3) Last Admin: 08/09/23 21:25 Dose: 650 mg Al Hydroxide/Mg Hydroxide (Magnesium Hydrox/Alum Hydrox 30 Ml Oral.Susp) 30 ml PO Q6H PRN PRN Reason: Heartburn/Nausea Artificial Tears (Artificial Tears 15 Ml Drops) 1 drop EYE-BOTH Q4H PRN PRN Reason: Dry Eyes Folic Acid (Folic Acid 1 Mg Tablet) 1 mg PO DAILY [facility] Last Admin: 08/11/23 08:30 Dose: 1 mg Hydroxyzine HCl (Hydroxyzine Hcl 25 Mg Tablet) 25 mg PO Q6H PRN PRN Reason: Anxiety Last Admin: 08/10/23 21:10 Dose: 25 mg Magnesium Hydroxide (Milk Of Magnesia 30 Ml Oral.Susp) 30 ml PO DAILY PRN PRN Reason: Constipation Last Admin: 08/08/23 20:22 Dose: 30 ml Melatonin (Melatonin 3 Mg Tablet) 6 mg PO BEDTIME PRN PRN Reason: Insomnia Last Admin: 08/10/23 21:10 Dose: 6 mg Methadone HCl (Methadone Hcl 20 Mg/2 Ml Oral.Conc) 50 mg PO DAILY [facility] Last Admin: 08/11/23 08:29 Dose: 50 mg Moxifloxacin HCl (Moxifloxacin Hcl 0.5 % Oph Bhargavi 3 Ml Drpbtl) 1 drop EYE-BOTH TID [facility] Stop: 08/17/23 10:19 Last Admin: 08/11/23 08:30 Dose: 1 drop Multivitamins/Vitamin C (Multivitamin Tablet) 1 tab PO DAILY [facility] Last Admin: 08/11/23 08:30 Dose: 1 tab Nicotine (Nicotine 21 Mg Patch.Td24) 21 mg TRANSDERMA DAILY [facility] Last Admin: 08/11/23 08:35 Dose: 21 mg Nicotine Polacrilex (Nicotine Polacrilex Lozenge 4 Mg Lozenge) 4 mg BUCCAL Q2H PRN PRN Reason: Nicotine Cravings Last Admin: 08/10/23 19:00 Dose: 4 mg Olanzapine (Olanzapine 5 Mg Tablet) 5 mg PO BID [facility] Last Admin: 08/11/23 08:30 Dose: 5 mg Olanzapine (Olanzapine 5 Mg Tablet) 5 mg PO TID PRN PRN Reason: psychosis Last Admin: 08/06/23 14:23 Dose: 5 mg Thiamine HCl (Thiamine Hcl 100 Mg Tablet) 100 mg PO DAILY [facility] Last Admin: 08/11/23 08:30 Dose: 100 mg Tizanidine HCl (Tizanidine Hcl 4 Mg Tablet) 4 mg PO TID PRN PRN Reason: Restlessness Last Admin: 08/07/23 15:50 Dose: 4 mg Trazodone HCl (Trazodone Hcl 50 Mg Tablet) 50 mg PO BEDTIME MRX1 PRN PRN Reason: Insomnia Last Admin: 08/07/23 20:40 Dose: 50 mg Allergies Allergies Allergy/AdvReac Type Severity Reaction Status Date / Time No Known Allergies Allergy Verified 08/05/23 17:28 Assessment & Plan Assessment & Plan (1) Opioid use disorder: Status: Acute Code(s): F11.90 - Opioid use, unspecified, uncomplicated Assessment and Plan: continue methadone at current dose (50mg daily) SW to coordinate referral to OTP likely withdrawing from cocaine as well given how much he has been sleeping--he does not appear sedated and is appropriate when he does engage no additional follow up needed at this time, unless requested by patient or provider (2) Bipolar disorder with psychotic features: Status: Acute Code(s): F31.9 - Bipolar disorder, unspecified Plan 08/08: Continue regime Message left for [facility] GI to discuss their recommendations Hospitalist consult-weight loss, GI sx, ?eye infection from contacts. 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 signed 3 day. no safety concerns other than chronic substance use including cocaine, weight loss. 08/10 plan to dc tomorrow Reason for continued inpatient stay Substantial Risk for: stable for discharge Time Spent With Patient Time: Total time managing care of this patient today ____ minutes.
[2023-08-11] MEDS: Milk of Magnesia 30 ML ORAL.SUSP PO (11:11)
[2023-08-11] MEDS: Magnesium Oxide 400 MG TABLET PO (11:12)
[2023-08-11] MEDS: polyethylene glycoL 3350 17 GM POWD.PACK PO (11:12)
[2023-08-11] MEDS: Nicotine Polacrilex Lozenge 4 MG LOZENGE BUCCAL ×3 (13:40→20:02)
[2023-08-11 20:00] VITALS: BP 139/61; PULSE 81; RESP 16; TEMP 36.6; O2SAT 95
[2023-08-11] MEDS: Sennosides/Docusate Sodium TABLET 1 TAB PO (20:01)
[2023-08-11] MEDS: traZODone HCL 50 MG TABLET PO (20:02)
[2023-08-11] MEDS: Melatonin 3 MG TABLET 6 MG PO (21:25)
[2023-08-12] MEDS: OLANZapine 5 MG TABLET PO (08:25)
[2023-08-12] MEDS: Multivitamin TABLET 1 TAB PO (08:25)
[2023-08-12] MEDS: Sennosides/Docusate Sodium TABLET 1 TAB PO (08:25)
[2023-08-12] MEDS: methADONE HCl 20 MG/2 ML ORAL.CONC 50 MG PO (08:25)
[2023-08-12] MEDS: Thiamine HCL 100 MG TABLET PO (08:25)
[2023-08-12] MEDS: Folic Acid 1 MG TABLET PO (08:26)
[2023-08-12] MEDS: Nicotine 21 MG PATCH.TD24 TRANSDERMA (08:26)
--- NOTE | 2023-08-12 09:06 | P.DS_ITS ---
DS: Providers Provider Date of Service: 08/12/23 Date of admission: 08/06/23 10:21 Date of discharge: 08/12/23 Primary care physician: None Physician Consults: 08/10/23 05:45 Consult to Hospitalist Routine Comment: Consulting Provider: Hospitalist Reason For Exam: Wt, Loss, GI distress, ?eye irritation-infection Discharging clinician: Asya Whitley DS: Diagnosis Discharge Diagnosis (1) Opioid use disorder: Status: Acute (2) Bipolar disorder with psychotic features: Status: Acute DS: Medications Discharge Medications Home Medications: Previous Rx's ?Medication ?Instructions ?Recorded folic acid 1 mg tablet 1 mg PO DAILY #30 tabs 08/12/23 melatonin 3 mg tablet 6 mg (2 x 3 mg) PO BEDTIME PRN 08/12/23 Insomnia #60 tabs moxifloxacin 0.5 % eye drops 1 drp ophthalmic (eye) TID #3 mL 08/12/23 multivitamin (Daily-Lili tablet) 1 tab PO DAILY #30 tabs 08/12/23 olanzapine 5 mg tablet 5 mg PO BID #60 tabs 08/12/23 sennosides 8.6 mg-docusate sodium 1 tab PO BID #60 tabs 08/12/23 50 mg tablet (Senna Plus) thiamine mononitrate (vit B1) 100 100 mg PO DAILY #30 tabs 08/12/23 mg tablet trazodone 50 mg tablet 50 mg PO BEDTIME MRX1 PRN Insomnia 08/12/23 #30 tabs Mental Status Exam Mental Status Exam Patient Appearance: Unkempt Patient Orientation: Person, Place, Time and Situation Level of Consciousness: Alert Patient Behavior: Talkative, Cooperative and Good Eye Contact Mood Description: Calm Affect Description: Appropriate Patient Cognition Impaired: No Ability to Follow Directions: Good Speech Pattern: Spontaneous Speech Memory Description: Intact Delusions: Not Present Data Data Completed and Pending Completed studies during hospitalization [Text1]: 08/05/23 08/05/23 08/07/23 17:51 17:53 07:49 WBC 10.2 RBC 4.63 Hgb 13.7 L Hct 39.2 L MCV 84.7 MCH 29.6 MCHC 34.9 RDW 12.6 Plt Count 289 MPV 8.6 L Immature Gran % (Auto) 0.2 Neut % (Auto) 67.3 Lymph % (Auto) 23.8 [place] % (Auto) 8.3 Eos % (Auto) 0.2 Baso % (Auto) 0.2 Lymph # (Auto) 2.4 [place] # (Auto) 0.8 Eos # (Auto) 0.0 Baso # (Auto) 0.0 Abs Immat Gran (auto) 0.02 Absolute Neuts (auto) 6.8 Absolute Nucleated RBC 0.000 Nucleated RBC % (auto) 0.0 Sodium 139 Potassium 3.8 Chloride 102 Carbon Dioxide 29 Anion Gap 12 BUN 16 Creatinine 0.80 Estim Creat Clear Calc 95.0 Estimated GFR > 60 Random Glucose 107 Estimat Average Glucose 105 Hemoglobin A1c % 5.3 Calcium 9.3 D Magnesium 1.9 2.1 Total Bilirubin 0.3 AST 12 ALT 13 Alkaline Phosphatase 85 Total Protein 6.8 Albumin 4.1 Triglycerides 109 Cholesterol 149 LDL Cholesterol, Calc 74 HDL Cholesterol 54 Lipase 12 Vitamin B12 701 Folate 9.6 TSH 0.25 L Free T4 0.99 Urine Color Yellow Urine Appearance Clear Urine pH 5.5 Ur Specific [place] 1.025 Urine Protein Negative Urine Glucose (UA) Negative Urine Ketones Trace Urine Blood Negative Urine Nitrite Negative Ur Leukocyte Esterase Negative Urine Opiates Screen POSITIVE H Ur Buprenorphine Scrn Not Detected Ur Oxycodone Screen Not Detected Urine Methadone Screen Not Detected Urine Fentanyl Screen POSITIVE H Ur Barbiturates Screen Not Detected Ur Phencyclidine Scrn Not Detected Ur Amphetamines Screen Not Detected U Benzodiazepines Scrn Not Detected Urine Cocaine Screen POSITIVE H U Marijuana (THC) Screen Not Detected Ethyl Alcohol < 10 DS: Summary Hospital Course Hospital Course: 33 yo male, presents in ER with report that he has white stringy things coming from his hands and other body parts, that parasites are launching and eating plastic bags that his food is in and he has seen parasites in his stool. Reports a 30 lb weight loss along with cannabis use daily. Toxicology positive for heroin (injects he reports), fentanyl and cocaine. Pt was seen by Addiction Medicine in the ER and methadone 10 mg q3h to a max of 4 doses was ordered, along with scheduled methadone 50 mg daily, and tizanidine tid prn. Pt reports a history of bipolar disorder. He is spending a good deal of time in bed. Today he declines to meet, and is asleep and detoxing without difficulty. Past Psychiatric History: IP: Affirms OP: No current alliance Medical Evaluation Reviewed: Yes HOSPITAL COURSE Mr. Mukherjee was admitted to and placed on 15 minutes checks for safety. He was mostly in his room and did not engage in assigned groups. 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 He denied sensation of parasites crawling under skin in both hands and forearm. He denied SI/HI. He was started on olanzapine 5mg po BID with good effect. No signs of aggression towards self or others. He denied referrals for substance use treatment programs. He was started on methadone by addiction medicine with plan to continue methadone outpatient at [facility]. He was given narcan at time of discharge. Status at Discharge Cognitive/behavioral status at discharge: Pt with brighter, non labile affect. No SI/HI. No overt psychosis or delusions. Future oriented. Sleeping and eating well. limited insight into extend of substance use disorder and need for treatment.He was given narcan at time of discharge. Functional status at discharge: independent ambulation Overall status at discharge: patient is progressing back to baseline Time Spent with Patient Time attestation: Total time managing care of this patient today __30__ minutes. 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 ) [facility]: [facility] ([facility]) [Other] - 1 Week (Information for Behavioral health services Patient should self present to [facility] to be connected with outpatient mental health services (therapy and psychiatry) Hours to present for evaluation are 8 am- 8 pm Tuesday to Tuesday, Tuesday 9 am- 5 pm ) [facility] [Other] - 1 Week (Information for Behavioral health services Patient should self present to [facility] to be connected with outpatient mental health services (therapy and psychiatry) Hours to present for evaluation are 10 am- 12 pm Tuesday to Tuesday.) Physician,None [Primary Care Provider] - 1 Week Discharge Medications: New trazodone 50 mg Tablet 50 mg PO BEDTIME MRX1 PRN (Reason: Insomnia) Qty: 30 0RF sennosides-docusate sodium [Senna Plus] 8.6-50 mg Tablet 1 tab PO BID Qty: 60 0RF olanzapine 5 mg Tablet 5 mg PO BID Qty: 60 0RF moxifloxacin 0.5 % Drops 1 drp ophthalmic (eye) TID Qty: 3 0RF melatonin 3 mg Tablet 6 mg PO BEDTIME PRN (Reason: Insomnia) Qty: 60 0RF multivitamin [Daily-Lili] Tablet 1 tab PO DAILY Qty: 30 0RF folic acid 1 mg Tablet 1 mg PO DAILY Qty: 30 0RF thiamine mononitrate (vit B1) 100 mg Tablet 100 mg PO DAILY Qty: 30 0RF Discharge Orders: Discharge Order (Routine); Ordered 08/12/23 Ordered By: Asya Whitley Diet: Regular diet Activity on Discharge: As tolerated Stand Alone Forms: Patient Portal Discharge page Print Language: Georgian Care Plan Goals: 1. maintain mood 2. harm reduction- narcan given on discharge 3. no aggression towards self or others 4. no psychosis or delusions Health Concerns: follow up with PCP and eye doctor for red eye Plan of Treatment: 1. take medications as prescribed 2. go to nearest ED or call 911 Assessment: Pt with brighter, non labile affect. NO SI/HI. no overt psychosis or delusions. sleeping and eating well.
[2023-08-12] MEDS: Naloxone HCl Nasal TAKE HOME 4 MG SPRAY 8 MG NOSTRILALT (10:27)
== END 2023-08-12 10:38 | disposition home or self-care (01) | DRG 885 ==
LOC: HO.ED 08-06 09:21 → HO.PM5 08-06 10:26
PROVIDERS: Physician Assistant Medical; Admitting Provider Clinical Nurse Specialist Psychiatric/Mental Health, Adult; Emergency Provider Emergency Medicine Emergency Medical Services; Visit Provider Clinical Nurse Specialist Psychiatric/Mental Health, Adult
DX: F31.9 Bipolar disorder, unspecified (principal); F11.93 Opioid use, unspecified with withdrawal; F14.93 Cocaine use, unspecified with withdrawal; Z68.1 Body mass index [BMI] 19.9 or less, adult; F19.950 Other psychoactive substance use, unspecified with psychoactive substance-induced psychotic disorder with delusions; R63.4 Abnormal weight loss; H10.89 Other conjunctivitis; F17.210 Nicotine dependence, cigarettes, uncomplicated; Z71.6 Tobacco abuse counseling; Z79.899 Other long term (current) drug therapy
CPT/HCPCS: 36415; 80053; 80061; 80307; 81003; 82607; 82746; 83036; 83690; 83735; 84439; 84443; 85025; 93005; 99285; S9485

== ENCOUNTER 2023-08-06 10:21 | Outpatient (BNV) | payer MEDICAID, SELFPAY | END 2023-08-06 11:24 | PROVIDERS: Admitting Provider Clinical Nurse Specialist Psychiatric/Mental Health, Adult; Emergency Provider Emergency Medicine Emergency Medical Services; Visit Provider Internal Medicine | DX: R00.1 Bradycardia, unspecified (principal); R94.31 Abnormal electrocardiogram [ECG] [EKG] | CPT/HCPCS: 93010 ==

== ENCOUNTER → 2023-08-06 10:21 | Outpatient (BNV) | payer MEDICAID, OTHER, SELFPAY | PROVIDERS: Admitting Provider Clinical Nurse Specialist Psychiatric/Mental Health, Adult; Emergency Provider Emergency Medicine Emergency Medical Services; Visit Provider Nurse Practitioner Psychiatric/Mental Health | DX: F31.5 Bipolar disorder, current episode depressed, severe, with psychotic features (principal); F11.90 Opioid use, unspecified, uncomplicated | CPT/HCPCS: 99231; 99232; 99499 ==

== ENCOUNTER 2023-09-16 19:05 | Emergency (ER) | payer OTHER, SELFPAY ==
--- NOTE | ~2023-09-16 | CT_ITS ---
EXAMINATION: CT ABDOMEN AND PELVIS WITHOUT IV CONTRAST CLINICAL INFORMATION: Abdominal pain COMPARISON: None TECHNIQUE: Multiple axial images were obtained from the superior aspect of the liver through the pubic symphysis without intravenous contrast. Images were evaluated on independent dedicated 3-D workstation and 3-D images were reconstructed with concurrent radiologist supervision and subsequently interpreted. Oral contrast was not administered. This CT examination was performed using dose optimization techniques as appropriate, variously including the following: *Automated exposure control *Adjustment of mA and/or kV according to patient size (this includes techniques or standardized protocols for targeted exams where dose is matched to indication/reason for exam; i.e. extremities or head) *Use of iterative reconstruction technique DLP: 317 mGy-cm FINDINGS: LUNG BASES: The visualized lung bases are clear. CARDIOMEDIASTINUM: The visualized heart is normal in size without pericardial effusion. No coronary artery calcification. LIVER: Within the anterior aspect of segment 4A, there is a wedge-shaped hypodense defect (see johansen image), measuring mixed density (HU [id number]) with associated trace perihepatic collection, concerning for grade 2 hepatic laceration. GALLBLADDER: Noninflamed. BILIARY SYSTEM: Mild intrahepatic ductal dilation. CBD measures 1.1 cm. PANCREAS: Homogeneous in attenuation. SPLEEN: Normal in size. GENITOURINARY: No contour deforming masses. No perinephric fluid collection. No renal calculi. No hydroureteronephrosis. ADRENAL GLANDS: Unremarkable. REPRODUCTIVE: Prostate present. GASTROINTESTINAL: Small bowel intussusceptum left of midline. No bowel obstruction. APPENDIX: The appendix is not visualized; however, no pericecal inflammatory changes are seen in the right lower quadrant. PERITONEUM: No pneumoperitoneum. No intra-abdominal fluid collection. VASCULATURE: No abdominal aortic aneurysm. LYMPH NODES: No pathologically enlarged abdominal or pelvic lymph nodes. SOFT TISSUES/MUSCULOSKELETAL: L3 bilateral pars interarticularis defect. L3-4 disc protrusion resulting in mild central canal and neural foraminal stenosis. No acute fracture or spondylolisthesis. CT/CT abdomen pelvis w IV con IMPRESSION: 1. Suspected grade II liver laceration within segment 4A with trace regional perihepatic fluid. 2. Small bowel intussusception left of midline without associated small bowel obstruction. 3. Dilated common bile duct with mild intrahepatic biliary ductal dilation. No choledocholithiasis, cholelithiasis, or evidence of cholecystitis. Correlate with LFTs. Fleischner guidelines were followed. This critical test result was discussed with Dr. Reji Bullock at 0054 on 09/17/[address] Stephen Gonzalez at the time of discovery. It was ascertained that the content and the importance of the findings was understood at the time of the direct communication.
[2023-09-16 19:36] VITALS: BP 128/70; PULSE 82; RESP 16; TEMP 36.4; O2SAT 95; BMI 18.8
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
[2023-09-16 19:59] LABS: MANUAL DIFF FLAG NO
[2023-09-16 20:00] LABS: Basophils Percent Auto 0.3 % (0-2); Eosinophils Absolute Auto 0.1 X10*3/uL (0.0-0.4); Eosinophils Percent Auto 0.8 % (0-4); Hematocrit 39.8 % (42.0-52.0); Hemoglobin 13.9 g/dl (14.0-18.0); Imm Gran Abs Auto 0.03 X10*3/uL (0.00-0.03); Imm Gran Pct Auto 0.3 % (0.0-0.4); Lymphocytes Absolute Auto 1.8 X10*3/uL (1.2-4.9); Lymphocytes Percent Auto 15.4 % (20-40); Mean Corpuscular HGB Conc 34.9 g/dl (31.0-36.0); Mean Corpuscular Hemoglobin 30.3 pg (27.0-33.0); Mean Corpuscular Volume 86.9 fL (80.0-98.0); Mean Platelet Volume 8.5 fL (9.4-12.4); Monocytes Absolute Auto 1.2 X10*3/uL (0.1-1.2); Monocytes Percent Auto 9.9 % (2-11); Neutrophils Absolute Auto 8.8 x10*3/uL (2.0-8.3); Neutrophils Percent Auto 73.3 % (45-73); Platelet Count 215 X10*3/uL (160-400); Red Blood Count 4.58 X10*6/uL (4.60-5.80); Red Cell Distribution Width 12.8 % (11.0-16.0)
[2023-09-16 20:01] VITALS: BP 109/60; PULSE 81; RESP 16; TEMP 36.4; O2SAT 96
--- NOTE | 2023-09-16 20:04 | MHC.EDTECH ---
pt changed over at this time, changed into hospital gown and vitals given, pt is in no apparent distress
[2023-09-16 20:16] LABS: Alanine Aminotransferase 49 U/L (0-40); Albumin Level 3.9 g/dL (3.5-5.0); Alkaline Phosphatase 106 U/L (39-117); Anion Gap 16 (12-20); Aspartate Amino Transferase 25 U/L (5-37); Bilirubin Total 0.4 mg/dL (0.0-1.0); Blood Urea Nitrogen 21 mg/dL (9-16); Calcium 9.1 mg/dL (8.4-10.2); Carbon Dioxide 29 mmol/L (22-29); Chloride 97 mmol/L (96-108); Estimated Glomerular Filt Rate > 60; Ethanol < 10 mg/dL; Glucose Random 94 mg/dL (60-115); Potassium 4.5 mmol/L (3.3-5.1); Sodium 137 mmol/L (135-145)
[2023-09-16 21:55] VITALS: BP 98/59; PULSE 76; RESP 16; TEMP 36.6; O2SAT 97
--- NOTE | 2023-09-16 22:06 | PC.NURSE ---
Pt A&Ox3, very fidgety while laying in stretcher, reports multiple complaints of ESCOBEDO, noticing blood and parasites in stool today while having BM, and all over body pain/muscle pain that worsens with movement. Pt denies SI/HI/AH but endorses VH of people. Pt reports being in a dark place and going through a lot with multiple life stressors including recently relapsing on IV drug use. Pt also report not taking his prescribed meds.
[2023-09-16] MEDS: 0.9 % Sodium Chloride 1,000 ML 999 ML IV (23:02)
[2023-09-16] MEDS: iohexoL 350 MG/ML 100 ML INFUS..BTL 85 ML IV (23:10)
[2023-09-17 00:14] VITALS: BP 110/68; PULSE 66; RESP 14; TEMP 36.6; O2SAT 97
[2023-09-17 00:27] LABS: Appearance Urine Clear; Color Urine Yellow; Glucose Urine UA Negative (Negative); Leukocyte Esterase Urine Negative (Negative); Nitrite Urine Negative (Negative); PH 5.5 (5.0-9.0); Specific Gravity - Urine >= 1.030 (1.005-1.025); Urine Blood Negative (Negative); Urine Ketones Trace mg/dL (Negative); Urine Protein Negative (Neg-Trace)
[2023-09-17 00:36] LABS: Amphetamine Screen Urine Not Detected (Not Detect); Barbiturates, Urine Not Detected (Not Detect); Benzodiazepines Screen Urine Not Detected (Not Detect); Buprenorphine Scr Not Detected (Not Detect); Cannabinoid Screen Urine Not Detected (Not Detect); Cocaine Screen Urine POSITIVE (Not Detect); Fentanyl, urine POSITIVE (Not Detect); Methadone Screen, Urine Positive (Not Detect); Opiate Screen Urine POSITIVE (Not Detect); Oxycodone Screen Urine Not Detected (Not Detect); Phencyclidine Screen Urine Not Detected (Not Detect)
[2023-09-17 02:18] VITALS: BP 112/71; PULSE 58; RESP 14; TEMP 36.3; O2SAT 98
[2023-09-17] MEDS: Morphine Sulfate 2 MG/ML CARTRIDGE IVPUSH (02:36)
--- NOTE | 2023-09-17 02:56 | PC.NURSE ---
Transfer report called to [facility] ER, and given to Armand GALICIA. all questions answered, awaiting EMS for transfer
[2023-09-17 03:29] VITALS: BP 114/64; PULSE 72; RESP 14; TEMP 36.6; O2SAT 96
[2023-09-17 03:36] VITALS: BP 114/64; PULSE 72; RESP 14; TEMP 36.6; O2SAT 96
== END 2023-09-17 03:40 | disposition short-term general hospital (02) ==
PROVIDERS: Nurse Practitioner Family; Emergency Provider Student in an Organized Health Care Education/Training Program
DX: S36.113A Laceration of liver, unspecified degree, initial encounter (principal); X58.XXXA Exposure to other specified factors, initial encounter; K56.1 Intussusception; F31.9 Bipolar disorder, unspecified; F14.10 Cocaine abuse, uncomplicated; F17.210 Nicotine dependence, cigarettes, uncomplicated; Y93.9 Activity, unspecified; Y92.9 Unspecified place or not applicable; Y99.9 Unspecified external cause status; Z79.899 Other long term (current) drug therapy
CPT/HCPCS: 36415; 74177; 80053; 80307; 81003; 82550; 85025; 86850; 86900; 86901; 96361; 96374; 99285; J2270; Q9967